=== PATIENT | male | born 1980 | race Caucasian/White ===

== ENCOUNTER → 2022-11-23 | Outpatient (CLI) | payer MEDICAID, SELFPAY ==
--- NOTE | 2022-11-23 07:00 | CT_ITS ---
CT LEFT LOWER EXTREMITY WITH 3-D IMAGING CLINICAL INDICATION: MULTIPLE MASSES, LEFT LEG TECHNIQUE: Axial CT images of the LEFT lower extremity was performed with IV contrast material. Coronal and sagittal reformats were provided. RADIATION DOSAGE (If Supplied By Facility): CTDIvol = ( 17.01 ) mGy, DLP = ( 2444.40 ) mGycm COMPARISON: FINDINGS: Bones: Osseous structures are normal without evidence of fracture or dislocation. No lytic or blastic osseous masses. Soft Tissues: There is evidence of the varicosities along the medial aspect of the left thigh. There is a 5.9 cm x 3.4 cm x 4.9 cm fat-containing nodular density in the anterior proximal portion of the left thigh with what appears to be calcified phleboliths suggestive of a lipoma. CT/Extremity Lower WITH Contrast IMPRESSION: 5.9 cm x 3.4 cm x 4.9 cm fat-containing nodule in the proximal anterior left thigh. This is suggestive of a lipoma. Electronically Signed: Homer Robins MD at 10:17 EDT ,
--- NOTE | 2022-11-23 07:01 | CT_ITS ---
STUDY: CT CHEST, ABDOMEN T PELVIS WITH CONTRAST REASON FOR EXAM: Male, 42 years old. MULTIPLE MASSES, MAYBE LIPOMAS RADIATION DOSAGE (If Supplied By Facility): CTDIvol = ( 17.01 ) mGy, DLP = ( 2444.40 ) mGycm TECHNIQUE: Transaxial imaging was performed following intravenous administration of IV 100mL Isovue-370. Multiplanar coronal and sagittal images were reformatted. Individualized dose optimization techniques were used for this CT. COMPARISON: No relevant priors. FINDINGS: CHEST Small bilateral axillary lymph nodes. Focal increased markings in the anterior lateral aspect of the lingular segment of the left upper lobe. This is suggestive of a scarring. Localized thickening of the pleura in the posterior lateral aspect of the right upper lobe. This measures 3.6 cm x 1.2 cm. No underlying bony destruction is seen. Normal heart and pericardium. There are multiple small lymph nodes within the mediastinum, which are normal in size and morphology most compatible with reactive lymph hyperplasia. Normal hilar regions. Normal unenhanced pulmonary arteries. Normal aorta arch and descending thoracic aorta. There is demineralization of the thoracic spine. Focal sclerosis along the posterior aspect of the T11 vertebrae. There is a small hiatal hernia. Fatty infiltration of the liver. ABDOMEN There is decreased attenuation of the liver consistent with steatosis. Normal gallbladder and extrahepatic biliary system. Normal spleen. Normal pancreas. Normal bilateral adrenal glands. Normal right kidney. Normal left kidney. There is a small hiatal hernia. Normal small intestine. Normal colon. The appendix is visualized and appears normal. Normal abdominal aorta. Normal inferior vena cava. There is borderline retroperitoneal lymphadenopathy with enlarged nodes no greater than 10mm in the short axis diameter. There is a small umbilical hernia containing fat. Asymmetrical thickening of the anterior subcutaneous tissues just lateral to the umbilicus on the right side. Within the, there is a 1.5 cm x 1.2 cm slightly hyperdense nodule. Normal osseous structures. PELVIS Normal urinary bladder. Normal visualized small intestine. Normal visualized colon. There is no pelvic fluid. There is no pelvic lymphadenopathy or mass lesion. Normal visualized pelvic arteries. Normal abdominal wall. Demineralization of the vertebrae. Focal hyperdensity in the posterior aspect of the T11 vertebrae as well as the T2 vertebrae. CT/CT Chest, Abd, Pel w/Contrast IMPRESSION: Asymmetrical thickening of the anterior subcutaneous tissue just lateral to the umbilicus on the right side. Small umbilical hernia containing fat. The mineralization of the lumbar and thoracic vertebrae as described. Focal pleural thickening along the posterolateral aspect of the right upper lobe as described. Electronically Signed: Homer Robins MD at 10:14 EDT ,
== END | disposition home or self-care (01) ==
LOC: CT 06:55
PROVIDERS: PCP Family Medicine; Referring Provider Surgery; Visit Provider Surgery
DX: R22.9 Localized swelling, mass and lump, unspecified (principal); R22.2 Localized swelling, mass and lump, trunk
CPT/HCPCS: 71260; 73701; 74177; Q9967

== ENCOUNTER 2022-12-05 17:07 | Emergency (ER) | payer MEDICAID, SELFPAY ==
[2022-12-05 17:10] VITALS: BP 138/95; PULSE 93; RESP 18; TEMP 36.3; O2SAT 98; BMI 27.5
[2022-12-05 18:12] LABS: Absolute Neutrophil Count 2.7 X10^3/uL (2.0-7.7); Basophil# 0.04 X10^3/uL; Basophil% 0.8 % (0-1); Eosinophil# 0.04 X10^3/uL; Eosinophils% 0.8 % (0-5); Hematocrit 48.1 % (40-54); Hemoglobin 15.8 g/dL (13.0-16.5); Lymphocyte % 28.7 % (19-41); Mean Corp Hgb Conc 32.8 g/dL (32-36); Mean Corpuscular Hgb 30.5 pg (27.0-32.0); Mean Corpuscular Volume 92.9 fL (80-94); Mean Platelet Vol. 10.7 fl (6.2-12.0); Monocyte# 0.68 X10^3/uL; NRBC Flagged by Analyzer 0 % (0-5); Neutrophil # 2.69 X10^3/uL (2.7-7.7); Neutrophil % 55.3 % (47-70); Platelet Count 232 K/mm3 (150-450); RBC Distribution Width CV 13.7 % (11.6-14.6); Red Blood Count 5.18 M/mm3 (4.6-6.2); White Blood Count 4.9 K/mm3 (4.4-11.0)
--- NOTE | 2022-12-05 18:13 | EX.ED.DYSGE1 ---
HPI History of Present Illness Chief Complaint: GI Bleed [facility] Medical History (Updated 12/05/22 @ 20:[address] Margarito Li, DO) Hydrocele Home Medications buprenorphine 8 mg-naloxone 2 mg sublingual tablet 0.5 tab sublingual TID 12/05/22 [History Last Taken Unknown] gabapentin 600 mg tablet 600 mg PO TID 12/05/22 [History Last Taken Unknown] ondansetron 4 mg disintegrating tablet 4 mg PO Q8H PRN nausea and vomiting 3 days #9 tabs 12/05/22 [Rx Last Taken Unknown] Allergy/AdvReac Type Severity Reaction Status Date / Time No Known Allergies Allergy Verified 12/05/22 17:40 Family History (Updated 11/11/22 @ 08:56 by Juliana Ortiz) Mother Skin cancer Social History Smoking Status: Current every day smoker tobacco type: cigarettes EXAM Physical Exam Const Vital Signs: 12/05/22 17:10 12/05/22 19:08 12/05/22 20:48 Temperature 97.4 F L Temperature Source Temporal Pulse Rate 93 78 Respiratory Rate 18 18 18 Blood Pressure 138/95 H 142/88 H Blood Pressure Mean 109 Pulse Ox 98 100 95 Oxygen Delivery Method Room Air Room Air MDM MDM MDM Narrative Medical decision making narrative: HISTORY OF PRESENT ILLNESS: 42-year-old male here with concern for GI bleeding. The patient states he is about 5 days of diarrhea notes 3-4 episodes a day. Denies any vomiting but notes nausea. Denies any fever. Denies any recent travel antibiotics or hospitalizations. Notes diffuse abdominal pain. Denies history of abdominal surgeries. REVIEW OF SYSTEMS: Pertinent positives: Abdominal pain, GI bleeding, diarrhea nausea Pertinent negatives: Vomiting PHYSICAL EXAM: Nursing triage notes reviewed, Vital signs reviewed Constitutional: please see mdm HENT: MMM Eyes: Pupils equal round and reactive to light, Extraocular muscles intact Neck: No stridor, no JVD, full neck ROM Lungs: Clear to auscultation, No wheezing or rales. No increased work of breathing, no conversational dyspnea, no accessory muscle use, no nasal flaring. No respiratory distress noted Heart: Regular rate and rhythm, No murmurs, No rubs and No gallops, 2+ distal pulses (radial, femoral, posterior tibial) in all extremities Abdomen: Soft, there is no tenderness, rigidity, rebound or guarding, no obvious peritoneal signs, no palpable pulsatile abdominal masses, no auscultated abdominal bruit : No CVAT Extremities: No edema Neuro: No focal neurological deficits, cranial nerves II through XII intact, 5/5 strength in all extremities. Intact sensation to light touch in all extremities, 2+ reflexes bilateral patella tendons. Normal gait. No ataxia. Skin: No rash or lesions noted MEDICAL DECISION MAKING: Chief Complaint: GI bleeding External records reviewed: Seen by general surgery Dr. Hoyos for a lipoma. Prior imaging studies reviewed. CT scan of the chest abdomen pelvis from November 2022 shows no acute intra-abdominal pathology or masses. Factors affecting care: No anticoagulation noted, lipoma ALL IMAGES (IF OBTAINED) HAVE BEEN PERSONALLY REVIEWED AND INTERPRETED BY MYSELF. MDM Narrative: Patient was hemodynamically stable, afebrile, nontoxic-appearing. Abdominal exam was benign I considered the following differential diagnosis: Pancreatitis, hepatobiliary pathology, invasive diarrhea, GI bleed, significant anemia Patient's abdominal exam was not indicative of an acute surgical process in the abdomen or pelvis. I have a low suspicion for acute surgical pathology given benign nature of the patient's abdominal exam. I obtained labs to further elucidate the etiology patient complaints. Labs showed no evidence of significant anemia, no evidence of systemic inflammation, there is mild elevation liver enzymes and very mild elevation in lipase. Did order a stool culture however patient could not provide a sample in the emergency department. These lab findings can be trended as an outpatient. No clear life-limiting etiology was ascertained. Patient was given Zofran for home-going and GI follow-up instructions. The patient and/or family, caregivers express understanding. The patient and/or family, caregivers agrees with the plan. Shared decision making: I will have a discussion with the patient and or visitors regarding risk/benefits of further testing or admission. They will be made aware of of the risk/benefits inherent in this decision they will be given the opportunity to voice understanding. Total critical care time today provided was at least 0 minutes. This excludes separately billable procedures. Critical care time (if documented) is secondary to the patient having high probability of clinically significant/life threatening deterioration in the patient's condition which required my urgent intervention. Lab Data Attestation: I reviewed the patient's lab results. Lab results narrative: CBC without leukocytosis, severe anemia, no thrombocytopenia. BMP without significant electrolyte abnormalities, no significant anion gap, no acute kidney injury LFTs with mild elevation in liver enzymes with no obvious signs of obstructive liver pathology Lipase mildly elevated this is not consistent with acute pancreatitis. Labs: Laboratory Results - last 24 hr 12/05/22 17:40 WBC 4.9 RBC 5.18 Hgb 15.8 Hct 48.1 MCV 92.9 MCH 30.5 MCHC 32.8 RDW Std Deviation 47.0 H RDW Coeff of Yonathan 13.7 Plt Count 232 MPV 10.7 Immature Gran % (Auto) 0.400 Neut % (Auto) 55.3 Lymph % (Auto) 28.7 [place] % (Auto) 14.0 H Eos % (Auto) 0.8 Baso % (Auto) 0.8 Absolute Neuts (auto) 2.7 Absolute Lymphs (auto) 1.40 Nucleated RBC % 0 Sodium 136 Potassium 4.3 Chloride 102 Carbon Dioxide 27.0 Anion Gap 7 BUN 7 Creatinine 0.80 Estim Creat Clear Calc 133.38 Est GFR (MDRD) Af Amer 137 Est GFR (MDRD) Non-Af 113 BUN/Creatinine Ratio 8.8 L Glucose 96 Calcium 8.9 Total Bilirubin 0.30 AST 75 H ALT 88 H Alkaline Phosphatase 98 Total Protein 7.4 Albumin 3.4 Globulin 4.0 Albumin/Globulin Ratio 0.8 L Lipase 215 H Discharge Plan Triage Chief Complaint: GI Bleed Other Complaint: Abd Pain ED Provider: Margarito Li Dx/Rx/DC Orders Clinical Impression: Diarrhea, Elevated liver enzymes, Elevated lipase, Hematochezia, Abdominal pain Instructions: Abdominal Pain Prescriptions: New ondansetron 4 mg tablet,disintegrating 4 mg PO Q8H PRN (Reason: nausea and vomiting) 3 Days Qty: 9 0RF No Action gabapentin 600 mg tablet 600 mg PO TID Patient Comments: TAKE 1 TABLET BY MOUTH THREE TIMES A DAY buprenorphine-naloxone 8-2 mg tablet, sublingual 0.5 tab SUBLINGUAL TID Patient Comments: TAKE 1 & 1/2 TABLETS BY MOUTH DAILY Primary Care Provider: Cristina Rojas Referrals: Cristina Rojas MD [Primary Care Provider] - Friend,DO Miguelito [Med Staff - Active Staff] - Activity Restrictions/Additional Instructions: Thank you for trusting us with your care today! Please take Tylenol (2 pills, 650 mg), ibuprofen (2 pills, 400 mg) every 6 hours as needed for pain and fever control. Please take Zofran as prescribed. Please return to the emergency department if your symptoms change or worsen. Specifically develop vomiting cannot tolerate medicine by mouth. If develop worsening diarrhea, weakness, if you lose consciousness. Develop chest pain or shortness of breath. Please follow with your primary care physician as well as a local customs appraiser for further outpatient evaluation and management. Disposition Disposition: Home, Self Care Discharge Date/Time: 12/05/22 20:49
[2022-12-05 18:28] LABS: ALB/GLOB Ratio 0.8 RATIO (0.9-2.4); AST(SGOT) 75 U/L (15-37); Alanine Aminotransfer ALT/SGPT 88 U/L (16-61); Albumin, Serum 3.4 g/dL (3.2-5.0); Alkaline Phosphatase 98 U/L (45-117); Anion Gap 7 (5-15); BUN 7 mg/dL (7-18); BUN/Creat Ratio 8.8 RATIO (10-20); Calcium,Total 8.9 mg/dL (8.5-10.1); Chloride 102 mmol/L (98-107); EST Glomerular Filtration Rate 113 mL/min (>60); Est Glom Filt Rate - Afr Amer 137 mL/min (>60); Estimated Creatinine Clearance 133.38 ml/min; Glucose 96 mg/dL (74-106); Potassium 4.3 mmol/L (3.5-5.1); Protein, Total 7.4 g/dL (6.4-8.2); Sodium Level 136 mmol/L (136-145)
[2022-12-05 19:08] VITALS: RESP 18; O2SAT 100
[2022-12-05 19:28] LABS: Lipase 215 U/L (13-75)
[2022-12-05] MEDS: Ondansetron 4 MG/2 ML Vial IV (20:27)
[2022-12-05 20:48] VITALS: BP 142/88; PULSE 78; RESP 18; O2SAT 95
== END 2022-12-05 20:49 | disposition home or self-care (01) ==
PROVIDERS: Emergency Provider Emergency Medicine; PCP Family Medicine; Visit Provider Emergency Medicine
DX: K92.1 Melena (principal); F17.210 Nicotine dependence, cigarettes, uncomplicated; R10.9 Unspecified abdominal pain; R19.7 Diarrhea, unspecified; R74.8 Abnormal levels of other serum enzymes; Z79.899 Other long term (current) drug therapy
CPT/HCPCS: 80053; 83690; 85025; 96374; 99283; A4216; J2405

== ENCOUNTER 2022-12-28 11:37 | Day surgery (SDC) | payer MEDICAID, SELFPAY ==
[2022-12-28] MEDS: Lactated Ringers 1,000 ML 15 ML IV ×2 (11:45→16:10)
[2022-12-28 11:57] VITALS: BP 154/107; PULSE 95; RESP 17; TEMP 36.7; O2SAT 98; BMI 27.8
--- NOTE | 2022-12-28 12:39 | PCM.HP.BLA ---
History and Physical Date of Admission: 12/28/22 Date of Service: 11/11/22 MR#: [id number] Acct: [id number] Name: JESSE SHRESTHA Rep #: [id number] : 1980 Provider: Dr. Gm Hoyos MD Age/Sex: 42/M Location: [facility] Status: Signed Intake Vital Signs 11/12/2307:56 Height 6 ft Weight: 204 lb BMI 27.6 BP 141/86 H Blood Pressure Location Rt brachial Position Sitting Respiration 16 Pulse 96 Pulse Source Monitor Pulse Oximetry (%) 97 Intake Visit Reasons: MULTIPLE LIPOMAS ON ARM Chief Complaint: MULTIPLE LIPOMAS Allergies No Known Allergies Allergy (Unverified 11/11/22 08:57) Medications gabapentin 300 mg capsule 300 mg PO DAILY 11/11/22 [History Confirmed 11/11/22] mirtazapine 30 mg tablet (Remeron) 30 mg PO DAILY 11/11/22 [History Confirmed 11/11/22] ondansetron HCl 8 mg tablet 8 mg PO Q12H 11/11/22 [History Confirmed 11/11/22] PFSH Medical History (Updated 11/11/22 @ 15:[address] Gm Hoyos MD) Hydrocele Family History (Updated 11/11/22 @ 08:56 by Juliana Ortiz) Mother Skin cancer HPI HPI HPI: Patient is a 42-year-old male who presents for multiple lipomas. Patient is referred from Dr. Rojas. He states that he has had lipomas for many years. He estimates that the lipomas on his abdomen have been present for at least the last 10 years. 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 He denies any prior imaging of these masses. He states it was just recently that he learned they could be removed and is simply thought he would have to live with them for the rest of his life. He is a lifetime smoker but states that he is making efforts to quit through vaping. He has no history of skin infections and reports healing without difficulty. He denies any prior anesthetic difficulties with a hernia repair performed in his early 20s. Patient has a family history of 2 bouts of melanoma in his mother, but otherwise denies any soft tissue tumors or GI diagnoses. He later adds that he has 2 sisters?both with lipomas, but neither of had these removed and both have fewer/smaller lesions. Pertinent surgical history includes: Inguinal hernia repair ROS General General: No weight change, appetite, fatigue, colon cancer, breast cancer or weakness HEENT HEENT: No difficulty swallowing, eye injury, eye surgery, swollen glands or hoarseness Endo Endocrine: No thyroid disease, diabetes mellitus, thyroid cancer, Hair loss, heat intolerance or cold intolerance Skin Skin: Yes changing moles; No rash Breast Breast: No left breast lump, right breast lump, nipple discharge, breast pain, abnormal mammogram, abnormal US or breast enlargement Musc Musculoskeletal: Yes back problems; No arthritis, rheumatoid arthritis, gout or joint pain Cardio Cardiovascular: No murmur, pacemaker, heart disease, atrial fibrillation, high blood pressure, heart attack, heart stent, palpitations, shortness of breat with exertion or chest pain Psych Psychiatric: Yes anxiety; No depression or hearing voices Resp Respiratory: No shortness of breath, No sleep apnea, No cough, No COPD, No asthma, No emphysema and No wheezing Gastro Gastrointestinal: No abdominal pain, No nausea or vomiting, No diarrhea, No constipation, No blood in stool, No acid reflux, No hemorrhoids, No ulcers, No gallbladder problem and No black,tarry stools Additional Details: PANCREATITIS Nayan Hematologic: No blood thinners, No blood disorders, No bleeding, No anemia and No blood clots Neuro Neurologic: No system reviewed and no additional complaints, except as documented, No as per HPI, No abnormal gait, No abnormal hearing, No abnormal movements, No abnormal speech, No behavioral changes, No burning sensations, No confusion, No convulsions, No disequilibrium, No dizziness, No localized weakness, No frequent falls, No headache(s), No lack of coordination, No loss of vision, No memory loss, No numbness, No other visual disturbances, No radicular pain, No restless legs, No sensory deficit, No syncope, No tingling, No tremor(s), No weakness and No other Exam Const General: cooperative, comfortable and no acute distress Other: Patient coughs frequently with a dry cough and explains this away as his smoking habit Resp Effort & Inspection: normal respiratory effort Skin Other: Patient with large lipomatous mass to the ventral aspect of his left forearm. There are numerous lipomatous on this surface and dorsally as well. He has 3 lesions to the right ventral forearm. He then displays 2 larger masses over his left anterior thigh. Lastly I count 13 separate lesions of his anterior abdominal wall and 11 separate lesions over his back. Some of these are as large as a grapefruit. They are somewhat mobile and tender on palpation. Assessment and Plan Assessment and Plan (1) Mass of subcutaneous tissue of multiple sites: Status: Chronic Comment: Patient with at least 35 subcutaneous masses across his anterior abdominal wall, back, anterior right thigh, and left upper extremity. While these generally feels like lipomas on exam, I would like to obtain some imaging to assess for whether or not they both appear as lipomas as well as assess there depth of extension?particularly as it relates to the abdominal wall, back musculature, and the neurovascular bundle of the left thigh. Therefore, I am requesting CT imaging of the chest, abdomen, pelvis and thigh with IV contrast. We will plan to follow-up with patient once this is resulted and begin a plan for intervention. Patient has been informed that this would likely require a staged process to address all of these lesions. Plan: ? CT imaging of the chest, abdomen, pelvis, and thigh with IV contrast I have examined the patient and the H&P has been reviewed. There are no clinical changes since date of exam. He reports that he is nervous for today's operation and becomes nervous simply with going to the doctor's office. Expectations for today's procedure were reviewed and operative sites were marked to include presternal, abdominal, and left forearm lipomas. Patient acknowledges this is just the start of addressing his problems which may require further anesthetics. He has no further questions. Therefore we will proceed to the operating room for excision of the subcutaneous masses as discussed above.
--- NOTE | 2022-12-28 13:00 | LIP_PTH ---
PATIENT: JESSE SHRESTHA LOC: [facility] [place] U#:[id number] AGE/SX: 42/M ROOM: RE12/28/[address]: Dr. Gm Hoyos MD : 1980 BED: DIS: 12/28/2022 SPEC #: [id number] RECD: 12/29/22 07:55 STATUS: RONNIE ERIC #: [id number] CEDRIC: 12/28/22 13:[address]: Gm Hoyos DEPT: SURGICAL PATHOLOGY RECD BY: Gina Peres ENTERED: 12/29/22 09:11 SP TYPE: LIPOMA OTHR DR: Cristina Rojas MD Tissues: A - Soft tissues, NOS B - Soft tissues, NOS C - Soft tissues, NOS D - Soft tissues, NOS Procedures: Surgery Specimen Level III HEADER OPERATION: Excision lipoma on left forearm, upper abdominal and lower PRE-OP DIAGNOSIS: Mass of subcutaneous tissue of multiple sites TISSUE SUBMITTED: A - Sternal, B - Superior left rectus, C - Right inferior rectus, D - Left forearm MICROSCOPIC DIAGNOSIS A. Soft tissue mass of sternal region, excision: Lipoma with fat necrosis. B. Soft tissue lesion of superior left rectus, biopsy: Lipoma with fat necrosis, fibrosis and dystrophic microcalcifications. C. Soft tissue mass of right inferior rectus, excision: Lipoma with fat necrosis, fibrosis and dystrophic microcalcifications. D. Soft tissue mass of left forearm, excision: Lipoma with fat necrosis, fibrosis and dystrophic microcalcifications and changes of angiolipoma. AM:alejandro 12/30/2022 MICROSCOPIC DESCRIPTION Slides are reviewed. GROSS DESCRIPTION A - Received in fixative is one container labeled with the patient's name and designated sternal. The specimen consists of three lobulated pieces of lubin-yellow adipose tissue measuring 8.0 x 7.0 x 3.0 cm and 3.0 x 3.0 x 1.5 cm and 3.5 x 3.0 x 1.5 cm. Sections reveal yellow adipose cut surfaces without area of hemorrhage, necrosis or cystic degeneration. Title Search Manager sections are submitted in four cassettes. B - Received in fixative is one container labeled with the patient's name and designated superior left rectus. The specimen consists of seven lobulated pieces of yellow adipose tissue measuring in aggregate 12.0 x 9.0 x 3.5 cm and measuring 2.5 to 7.0 cm in greatest dimension. Sections reveal yellow adipose cut surfaces without area of hemorrhage, necrosis or cystic degeneration. Title Search Manager sections are submitted in four cassettes. C - Received in fixative is one container labeled with the patient's name and designated right inferior rectus. The specimen consists of seven variable sized pieces of lobulated yellow adipose tissue measuring in aggregate 15.0 x 10.0 x 4.0 cm and measuring 3.5 to 11.0 cm in greatest dimension. Sections reveal yellow adipose cut surfaces without area of hemorrhage, necrosis or cystic degeneration. Title Search Manager sections are submitted in four cassettes. D - Received in fixative is one container labeled with the patient's name and designated left forearm. The specimen consists of a lobulated piece of yellow adipose tissue measuring 5.5 x 4.5 x 2.0 cm. Sections reveal yellow adipose cut surfaces mixed with lubin-white fibrous areas. Title Search Manager sections are submitted in four cassettes. / SJ:rg 12/29/2022 TC:1 CPT: 23704 x4
[2022-12-28] MEDS: Cefazolin 2 GM in 0.9% Normal Saline (100mL Bag) 100 ML IV (13:26)
[2022-12-28] MEDS: Bupivacaine Mpf 0.5% 30 ML VIAL ×2 (13:55→15:39)
--- NOTE | 2022-12-28 16:23 | PCM.OPRPT ---
Report of Operation Date of Procedure: 12/28/22 Pre-Operative Diagnosis: Multiple subcutaneous masses consistent with lipomas by imaging Surgery/Procedure Performed:: Excision of multiple subcutaneous masses from the left forearm, lower chest, left upper abdominal wall, and right lower abdominal wall Description of Surgical Findings:: ? Left forearm 6.5 cm lon ? Right lower rectus 6 cm (by 1.5 cm): 7 ? Left upper rectus 6.5 cm (by 1 cm): 7 ? Sternum 5.5 cm (by 1 cm): 3 Surgeon: Gm Hoyos personal lines account manager: Jorge Zhou Type of Anesthesia: General/Supplemental Anesthesiologist: Corby Napoles Specimen's removed: Left forearm, sternal, left superior rectus, right inferior rectus lipomas (18 in total) Estimated Blood Loss (mL): 20 Description of Procedure: After appropriate identification the preoperative holding area patient was brought to the operating room where he was positioned in a supine position with his arm out on a armboard. There he was administered a general anesthetic. Preoperative antibiotics were infused. His chest, abdomen, and left upper extremity were prepped and draped in usual sterile fashion. A formal timeout followed to confirm both patient and procedure. I then injected local anesthetic and made a transverse incision 6 cm long along the mid aspect of the patient's lipomatous mass just overlying the lower part of his sternum. This was carried deeply through the tissue with use of electrocautery to maintain hemostasis as we proceeded. I then visualized the lipomatous subcutaneous mass and used a combination of sharp and blunt dissection to free this mass from the surrounding soft tissue/capsule. There is lipomatous mass was then completely extirpated with electrocautery and passed off the operative field for pathology. The resulting cavity was inspected for hemostasis as well as any additional masses. 2 additional masses were found and were removed in similar fashion. This process was then repeated for the patient's left upper abdominal wall, right lower abdominal wall and left forearm with 6.5 cm, 6.0 cm, and 6.5 cm incisions (after instillation of local anesthetic), respectively. All masses palpable through these incisions were removed with a combination of selective electrocautery and blunt dissection and a total of 18 distinct lipomatous masses were removed. Each wound was packed with a moistened lap sponge. Each cavity was then irrigated and closed in layers to plicate the space deeply and approximate the deep dermal tissues using 2-0 and 3-0 Vicryl, respectively. A final layer was performed in a subcuticular fashion using 4-0 Monocryl. Steri-Strips and dressing were applied along with Telfa and Tegaderm as dressings and the patient was awakened and transferred to the PACU bed for his ongoing care. Grafts/Implants Used: None Complications None Procedures Integumentary 114x: 12475 Exc tr-ext b9+dolly >4.0 cm
--- NOTE | 2022-12-28 16:27 | DCINST_ITS ---
Discharge Instructions Diet Discharge Diet: No restrictions Activity Discharge Activity: May Drive (No driving while using narcotic pain medication) May shower in (days): 2 Ice area for (Minutes): 15 Lifting Restrictions: Limit lifting with left upper extremity to no more than 5 pounds Dressing / Incision Call your doctor if your incision/area has: Continuous Slow Oozing, Sudden Increased Bleeding, Increased Pain/ Swelling, Increased Redness, Foul Smelling Discharge and Swelling at the incision site Call your doctor if you observe: Fever of 101 or Higher Suture Line Care: Avoid Pulling/Pushing Remove Dressing in: 2 days Cleanse incision/area with: Soap & Water Additional Dressing/Incision Instructions:: Please leave Steri-Strips intact until they fall off spontaneously or are taken off at your follow-up visit Follow Up Care Please Follow Up With: Gm Hoyos MD When: 7 days postop Test Results: Test results from this visit will be discussed in further detail at your follow- up appointment, if applicable. Discharge Plan Admission Primary Reason for Your Visit: Lipoma excision Attending Provider: Gm Hoyos Primary Care Provider: Cristina Rojas Discharge Orders/Prescriptions Prescriptions: No Action acetaminophen [Pain Relief (acetaminophen)] 325 mg tablet 650 mg PO Q4H PRN (Reason: pain) gabapentin 600 mg tablet 600 mg PO TID Patient Comments: TAKE 1 TABLET BY MOUTH THREE TIMES A DAY buprenorphine-naloxone 8-2 mg tablet, sublingual 0.5 tab SUBLINGUAL TID Patient Comments: TAKE 1 & 1/2 TABLETS BY MOUTH DAILY Referrals / Follow Up: Cristina Rojas MD [Primary Care Provider] - Disposition Disposition (needs filled in before D/C Order can be placed): Home, Self Care
[2022-12-28 16:39] VITALS: BP 154/107; BP 178/111; PULSE 84; RESP 18; TEMP 36.9; O2SAT 96
[2022-12-28 16:45] VITALS: BP 154/107; PULSE 91; RESP 18; O2SAT 98
[2022-12-28] MEDS: Ketorolac 30 MG/ML Syringe IV (16:52)
[2022-12-28 17:00] VITALS: BP 151/101; BP 154/107; PULSE 87; RESP 18; O2SAT 95
[2022-12-28 17:10] VITALS: BP 145/103; BP 154/107; PULSE 86; RESP 18; TEMP 37; O2SAT 98
[2022-12-28] MEDS: Acetaminophen 325 MG Tablet 650 MG PO (17:36)
[2022-12-28 17:56] VITALS: BP 142/94; BP 154/107; PULSE 97; RESP 16; TEMP 36.6; O2SAT 100
== END 2022-12-28 18:05 | disposition home or self-care (01) ==
LOC: SDC 11:38 → AC 11:42
PROVIDERS: PCP Family Medicine; Referring Provider Surgery; Visit Provider Surgery
PROC: (CPT 21552; principal; 2022-12-28 12:45)
DX: D17.1 Benign lipomatous neoplasm of skin and subcutaneous tissue of trunk (principal); D17.22 Benign lipomatous neoplasm of skin and subcutaneous tissue of left arm; F17.290 Nicotine dependence, other tobacco product, uncomplicated; Z80.8 Family history of malignant neoplasm of other organs or systems
CPT/HCPCS: 21552; 25071; 22903; 00400; 88304; J7120; J2405

== ENCOUNTER 2023-02-03 14:27 | Observation (INO) | payer MEDICAID, SELFPAY ==
[2023-02-03 14:28] VITALS: BP 122/74; PULSE 108; RESP 18; TEMP 35.6; O2SAT 96; BMI 27.6
--- NOTE | 2023-02-03 16:22 | EDS_ITS ---
HPI History of Present Illness Chief Complaint: ETOH Intox Narrative Narrative: 42-year-old male presenting for detox. He drinks 8-9 tall boys a day. He states that he drinks 4 Turin's and hard lemonade which are higher in alcohol content. Last drink was prior to coming to the ED. He states that 2 days ago he tried to stop drinking and got the shakes. He does report that he does withdrawal. Patient states that he needs detox from alcohol. Patient is in recovery from opioid use and is on Suboxone. [facility] Medical History Alcohol use Back pain Cancer History of steroid therapy Hydrocele Injury of back Injury of head and neck Smoker Wears contact lenses Wears glasses Home Medications buprenorphine 8 mg-naloxone 2 mg sublingual tablet 0.5 tab sublingual TID 12/05/22 [History Last Taken 12/28/22] gabapentin 600 mg tablet 600 mg PO TID 12/05/22 [History Last Taken 12/28/22] tramadol 50 mg tablet 50 mg PO Q6H PRN pain #20 tabs 12/29/22 [Rx Last Taken Unknown] Allergy/AdvReac Type Severity Reaction Status Date / Time No Known Allergies Allergy Verified 02/03/23 14:28 Family History Mother Skin cancer Surgical History Hx of hernia repair S/P excision of lipoma Social History Smoking Status: Current every day smoker tobacco type: cigarettes ROS ROS ED Constitutional Constitutional ED: Denies chills, fever(s) or sweats Eyes Eyes: Denies blurry vision or change in vision ENT ENT ED: Denies ear pain or sore throat Cardiovascular Cardiovascular: Denies chest pain, palpitations or racing heartbeat Respiratory/Chest Respiratory/Chest: Denies cough, dyspnea or sputum Gastrointestinal Gastrointestinal: Denies abdominal pain, constipation, diarrhea, nausea or vomiting Genitourinary Genitourinary ED: Denies dysuria, hematuria or urinary frequency Musculoskeletal Musculoskeletal: Denies arthralgias, myalgias or neck pain Integumentary Denies abscess, Abrasions or rash Neurologic Neurologic: Denies headache(s), paresthesias or weakness Psychiatric Psychiatric: Reports depression; Denies anxiety, suicidal ideation or suicidal thoughts Endocrine Endocrinology: Denies polydipsia or polyuria EXAM Physical Exam Const Vital Signs: 02/03/23 14:28 Temperature 96.1 F L Temperature Source Temporal Pulse Rate 108 H Respiratory Rate 18 Blood Pressure 122/74 H Blood Pressure Mean 90 Pulse Ox 96 Oxygen Delivery Method Room Air General Appearance ED: Negative for pallor HEENT Reports normocephalic, head/scalp atraumatic and moist mucous membranes Eyes PERRL and EOMs intact bilaterally Neck no lymphadenopathy and supple Chest Wall inspection of chest normal and palpation of chest normal Resp normal respiratory effort and clear to auscultation bilaterally Auscultation: Negative for rales, rhonchi or wheezes Cardio regular rate and regular rhythm GI non-distended Palpation: soft Narrative: Deferred Extremity normal to inspection Neuro oriented x3 and CN's II-XII intact bilaterally Sensorium / Orientation: alert Motor Exam: strength 5/5 throughout Psych mental status grossly normal Attitude: No agitated Skin no rashes or lesions noted and no wounds General Skin Exam: Negative for jaundice or pallor MDM MDM MDM Narrative Medical decision making narrative: Patient presenting for alcohol detox. Screening lab work was ordered. Patient states he last drink a couple of hours ago. He is not withdrawal. He is given a nicotine patch. Discussed with hospitalist for admission. Labs will be followed on the floor. Impression: 1. Presentation for alcohol detox Lab Data Labs: Laboratory Results - last 24 hr 02/03/23 15:40 Ur Drug Screen Comment Discharge Plan Triage Chief Complaint: ETOH Intox ED Provider: Alvin Fuller Dx/Rx/DC Orders Prescriptions: No Action tramadol 50 mg tablet 50 mg PO Q6H PRN (Reason: pain) Qty: 20 0RF gabapentin 600 mg tablet 600 mg PO TID Patient Comments: TAKE 1 TABLET BY MOUTH THREE TIMES A DAY buprenorphine-naloxone 8-2 mg tablet, sublingual 0.5 tab SUBLINGUAL TID Patient Comments: TAKE 1 & 1/2 TABLETS BY MOUTH DAILY Primary Care Provider: Cristina Rojas Referrals: Cristina Rojas MD [Primary Care Provider] -
--- NOTE | 2023-02-03 16:35 | NURSING ---
MED SURG WHITE ETOH DETOX
--- NOTE | 2023-02-03 16:40 | HP.PCM.HOS_ITS ---
HPI - General General Date of Admission: 02/03/23 Date of Service: 02/03/23 Chief Complaint: EtOH withdrawal HPI Narrative The patient is a 42 y/o M w/ PMHx: Anxiety and Depression who recently took himself off his sertraline, Chronic pain, Polysubstance abuse history on buprenorphine, Severe Diffuse lipoma history s/p recent excisions to abdominal lipomas, Tobacco use, EtOH abuse (8-14 Tall Boys) who presents to the [facility] ED on 02/03/23 with history of increased anxiety and depression without SI taking himself off of his medications unfortunately secondary to numb sensation although he recently restarted them but started drinking more heavily over the last ~ 6 weeks culminating with the anniversary of his father over the weekend Monday prompting his eventual decision for EtOH withdrawal treatment. He notes last intake early this AM with now onset mild nausea, mild tremors, mild agitation. Work-up in the ED included T96.1, heart rate 108, BP 122/74, respiratory rate 18, 96% on room air, CBC with WC 8.3, and 116.4, platelet 235 without marked shift, CMP with chloride 97, BUN/creatinine 6/0.95, glucose 113, AST/ALT 102/107, alk phos 129 otherwise not marked appearing, UDS unremarkable, alcohol pending upon request evaluation of patient. In the ED patient administered Nicotine patch. [facility] Medical History (Updated 02/03/23 @ 17:[address] 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 Sophia Leach MD) Mother Skin cancer Father Glioblastoma Familial multiple lipomatosis Surgical History Hx of hernia repair S/P excision of lipoma Social History (Updated 02/03/23 @ 17:[address] Sophia Leach MD) household members: none Smoking Status: Current every day smoker tobacco type: cigarettes Smoking packs per day: 1 Smoking cigarettes per day: 20.0 alcohol intake: current alcohol intake frequency: 3 or more drinks per day details: 8-14 Tall boys daily. 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 Clean status on buprenorphine. ROS ROS Narrative Admission Review of Systems: CONSTITUTIONAL: No weight loss, fever, chills, + weakness or fatigue. HEENT: Eyes: No visual loss, blurred vision, double vision or yellow sclerae. Ears, Nose, Throat: No hearing loss, sneezing, congestion, runny nose or sore throat. SKIN: + Significant lipoma history with recent resection of lipomas of the abdomen with incisions intact CARDIOVASCULAR: No chest pain, chest pressure or chest discomfort, palpitations, edema, orthopnea, syncopal events. RESPIRATORY: No shortness of breath, cough or sputum, wheezing, hemoptysis. GASTROINTESTINAL: + anorexia, nausea. No vomiting or diarrhea, abdominal pain, melena, BRBPR. GENITOURINARY: No dysuria, frequency, urgency or retention. NEUROLOGICAL: + Restlessness, mild agitation, mild tremors, tactile disturbances. No headache, dizziness, syncope, paralysis, ataxia, numbness or tingling in the extremities, focal weakness, change in bowel or bladder control, seizure. MUSCULOSKELETAL: + muscle, back pain, joint pain or stiffness. HEMATOLOGIC: No anemia, bleeding or bruising. LYMPHATICS: No enlarged nodes. No history of splenectomy. PSYCHIATRIC: + history of depression or anxiety. ENDOCRINOLOGIC: No reports of sweating, cold or heat intolerance. No polyuria or polydipsia. ALLERGIES: No history of asthma, hives, eczema or rhinitis. Vital Signs Vital Signs Vital Signs: 02/03/23 14:28 Temperature 96.1 F L Temperature Source Temporal Pulse Rate 108 H Respiratory Rate 18 Blood Pressure 122/74 H Blood Pressure Mean 90 Pulse Ox 96 Oxygen Delivery Method Room Air Weight Weight: 204 lb Body Mass Index (BMI) 27.6 Physical Exam Narrative Physical Examination: General: Awake, alert, oriented x 3 and cooperative, seated upright in the ED bed, restless, mildly tremulous. Skin: Normal color, normal turgor, no icterus, no cyanosis except for various abrasions in addition to recent abdominal superficial incision status post excision of lipomas well-appearing, intact. HEENT: AT/NC, EOMI, PERRLA, dry MM, no carotid bruits or JVD noted. Lungs: CTA bilaterally, moderate effort, mild decrease BL bases, no rales, ronchi or wheezing. Heart: Tachycardic with regular rhythm; no gallop, rub audible. Abdomen: Soft, NTTP except for expected around his incision status post recent lipoma resections with incisions intact and well-appearing, no marked distention, hyperactive BS, appreciated HM although difficult evaluation given significant lipomatosis. Extremities: No cyanosis, clubbing, or edema, see skin with lipomas on the extremities as well, recent excision with well-appearing scar on the left upper extremity also. Neurological: Patient awake, alert, oriented as noted, cognitive function intact; pupils equally reactive to light and accommodation, cranial nerves II- XII grossly normal, moving all 4 extremities, no focal deficits, strength mildly to moderately global decreased, restless, mildly tremulous, tactile disturbances reported. Psychiatric: Affect appears restless, anxious, does have underlying depression and anxiety. Results Lab / Micro Data 02/03/23 16:40 02/03/23 16:40 Labs: Laboratory Results - last 24 hr 02/03/23 15:40: Ur Drug Screen Comment Assessment & Plan Assessment/Plan (1) Alcohol withdrawal: PLAN: Plan The patient is a 42 y/o M w/ PMHx: Anxiety and Depression who recently took himself off his sertraline, Chronic pain, Polysubstance abuse history on buprenorphine, Severe Diffuse lipoma history s/p recent excisions to abdominal lipomas, Tobacco use, EtOH abuse (8-14 Tall Boys) who presents to the [facility] ED on 02/03/23 with history of recent increased alcohol abuse with onset of alcohol withdrawal with request for assistance for sobriety. #1. Acute EtOH Withdrawal with concurrent Acute Alcoholic hepatitis/transaminitis: Will admit to MS, routine labs obtained in the ED upon presentation w/ notable LFT elevations, likely chronic with AST/ALT 102/107, alk phos 129. Given interest in sobriety, will initiate and continue on protocol with taper course of Phenobarbital, as needed gabapentin, Catapres, Bentyl, Vistaril, IV fluids, IV antiemetics, Tylenol as needed for pain. Will consult Case management for assistance for transition to next level of rehabilitation c are. Mag, phos pending. Maintain on CIWA protocol concurrently. #2. Former Opiate Abuse/Polysubstance abuse: Patient does admit to IV drug usage prior but denies needle sharping. Discussed and to be cautious patient amenable to hepatitis, HIV and RPR assessment. Will continue chronic buprenorphine regimen. #3. Significant lipoma history, familial component: Patient with significant lipomas over his extremities and abdomen, recent excision from abdomen with incisions well-appearing, encourage continued outpatient follow-up with the surgeon as previously arranged. #4. Chronic back pain: We will continue patient home chronic gabapentin regimen. #5. Tobacco Abuse: Encouraged cessation, inpatient consultation per RT, NR if desired. #6. Anxiety and depression: We will continue patient home sertraline regimen, case management/substance abuse counseling team consulted, would benefit from ongoing therapy and potential medication adjustments given complaints. Educated patient about the risk of taking himself off of his medications without discussing it with a healthcare provider. #7. DVT prophylaxis: Low risk for type of admission. Charges/Coding Visit Charges Inpatient E&M: 08561 Init Hosp L3
[2023-02-03 16:58] LABS: Absolute Lymphocyte Count 2.37 X10^3/uL (0.83-4.51); Absolute Neutrophil Count 5.2 X10^3/uL (2.0-7.7); Basophil# 0.06 X10^3/uL; Basophil% 0.7 % (0-1); Eosinophil# 0.05 X10^3/uL; Eosinophils% 0.6 % (0-5); Hemoglobin 16.4 g/dL (13.0-16.5); Lymphocyte # 2.37 X10^3/ul (0.83-4.51); Lymphocyte % 28.6 % (19-41); Mean Corp Hgb Conc 33.5 g/dL (32-36); Mean Corpuscular Hgb 31.4 pg (27.0-32.0); Mean Corpuscular Volume 93.9 fL (80-94); Mean Platelet Vol. 10.5 fl (6.2-12.0); Monocyte# 0.62 X10^3/uL; Monocyte% 7.5 % (0-10); NRBC Flagged by Analyzer 0 % (0-5); Neutrophil # 5.17 X10^3/uL (2.7-7.7); Neutrophil % 62.2 % (47-70); Platelet Count 235 K/mm3 (150-450); RBC Distribution Width CV 14.6 % (11.6-14.6); RBC Distribution Width SD 50.3 fl (35.1-43.9); Red Blood Count 5.22 M/mm3 (4.6-6.2); White Blood Count 8.3 K/mm3 (4.4-11.0)
[2023-02-03 17:00] VITALS: PULSE 74; RESP 16; O2SAT 99
[2023-02-03 17:05] LABS: ALB/GLOB Ratio 0.8 RATIO (0.9-2.4); AST(SGOT) 102 U/L (15-37); Alanine Aminotransfer ALT/SGPT 107 U/L (16-61); Albumin, Serum 3.3 g/dL (3.2-5.0); Alkaline Phosphatase 129 U/L (45-117); Anion Gap 9 (5-15); BUN 6 mg/dL (7-18); BUN/Creat Ratio 6.3 RATIO (10-20); Calcium,Total 8.7 mg/dL (8.5-10.1); Chloride 97 mmol/L (98-107); Creatinine, Serum 0.95 mg/dL (0.70-1.30); EST Glomerular Filtration Rate 93 mL/min (>60); Est Glom Filt Rate - Afr Amer 112 mL/min (>60); Estimated Creatinine Clearance 112.32 ml/min; Globulin 3.9 g/dL (2.2-4.2); Glucose 113 mg/dL (74-106); Magnesium 1.7 mg/dL (1.6-2.6); Potassium 3.5 mmol/L (3.5-5.1); Protein, Total 7.2 g/dL (6.4-8.2); Sodium Level 138 mmol/L (136-145)
[2023-02-03 17:10] LABS: Amphetamine Urine VISTA NEGATIVE (<1000 ng/mL); Barbiturate Urine VISTA NEGATIVE (< 200 ng/mL); Benzodiazepine Urine VISTA NEGATIVE (< 200 ng/mL); Cocaine Urine VISTA NEGATIVE (< 300 ng/mL); Ecstacy Urine VISTA NEGATIVE (< 500 ng/mL); Methadone Urine VISTA NEGATIVE (< 300 ng/mL); PCP Urine VISTA NEGATIVE (< 25 ng/mL); THC Urine VISTA NEGATIVE (< 50 ng/mL); Vista UDS pH Range 6
[2023-02-03 17:11] LABS: Phosphorus 2.9 mg/dL (2.5-4.9)
[2023-02-03 18:01] LABS: HIV - WCH Non-Reactive (Nonreactive); Syphilis Antibodies Non-reactive
[2023-02-03 18:05] VITALS: PULSE 72; RESP 16; O2SAT 98
[2023-02-03 18:49] VITALS: BMI 27.6
[2023-02-03 18:55] VITALS: BP 152/88; PULSE 103; RESP 16; TEMP 36.6; O2SAT 98
[2023-02-03] MEDS: hydrOXYzine PAM 25 MG Capsule 50 MG PO ×2 (19:50→23:48)
[2023-02-03] MEDS: Phenobarbital 32.4 MG Tablet 64.8 MG PO ×2 (19:51→23:48)
[2023-02-03] MEDS: traZODone 100 MG Tablet PO (19:51)
[2023-02-03] MEDS: Dicyclomine 10 MG Capsule 20 MG PO (19:51)
[2023-02-03] MEDS: Acetaminophen 325 MG Tablet 650 MG PO (19:55)
[2023-02-03 20:48] LABS: Hepatitis B Surface Antibody Reactive; Hepatitis B Surface Antigen Non-Reactive (Nonreactive); Hepatitis C Antibody Preliminary Reactive (Nonreactive)
[2023-02-03] MEDS: Gabapentin 600 MG Tablet PO (21:14)
[2023-02-03 23:30] VITALS: O2SAT 98
[2023-02-03 23:50] VITALS: BP 133/93; PULSE 103; RESP 16; TEMP 37.2; O2SAT 98
[2023-02-04] VITALS (8 sets, daily range): BP systolic 138–167; BP diastolic 88–107; PULSE 78–104; RESP 16–18; TEMP 36.8–37.1; O2SAT 95–100
[2023-02-04] MEDS: hydrOXYzine PAM 25 MG Capsule 50 MG PO ×4 (04:06→20:13)
[2023-02-04] MEDS: Acetaminophen 325 MG Tablet 650 MG PO ×2 (04:07→20:12)
[2023-02-04] MEDS: Phenobarbital 32.4 MG Tablet 64.8 MG PO ×5 (04:07→20:09)
[2023-02-04] MEDS: hydrALAZINE 20 MG/ML Vial 10 MG IV (04:14)
[2023-02-04] MEDS: 0.9% Saline Lock 10 ML Syringe IV (04:14)
[2023-02-04] MEDS: Gabapentin 600 MG Tablet PO ×3 (05:41→21:03)
[2023-02-04] MEDS: Thiamine Hydrochloride 100 MG Tablet PO (08:30)
[2023-02-04] MEDS: Multivitamins,Ther W-Minerals Tablet 1 TABLET PO (08:31)
[2023-02-04] MEDS: Folic Acid 1 MG Tablet PO (08:31)
[2023-02-04] MEDS: Ondansetron 8 MG Tablet PO ×2 (08:40→20:12)
--- NOTE | 2023-02-04 10:44 | PN.HOSP_ITS ---
Reason for Visit Reason for Visit: Diagnoses Alcohol use, unspecified with withdrawal, unspecified (02/03/23) Subjective Subjective Patient was seen and examined today, he does not complain of any nervousness or tremor. Objective Data Objective Data Vital Signs: Vital Signs Temp Pulse Resp BP Pulse Ox O2 Del Method 98.2 F 87 18 138/88 H 97 Room Air 02/04/23 10:00 02/04/23 10:00 02/04/23 10:00 02/04/23 10:00 02/04/23 10:00 02/04/23 10:00 Oxygen Delivery Method Room Air Weight: 92.533 kg Body Mass Index (BMI) 27.6 Lab / Micro Data 02/03/23 16:40 02/03/23 16:40 Labs: Laboratory Results - last 24 hr 02/03/23 15:40: Urine Opiates Screen NEGATIVE, Urine Methadone Screen NEGATIVE, Ur Barbiturates Screen NEGATIVE, Ur Phencyclidine Scrn NEGATIVE, Ur Amphetamines Screen NEGATIVE, MDMA (Ecstasy) Screen NEGATIVE, U Benzodiazepines Scrn NEGATIVE, Urine Cocaine Screen NEGATIVE, U Cannabinoids Screen NEGATIVE, Ur Drug Screen Comment 02/03/23 16:40: WBC 8.3, RBC 5.22, Hgb 16.4, Hct 49.0, MCV 93.9, MCH 31.4, MCHC 33.5, RDW Std Deviation 50.3 H, RDW Coeff of Yonathan 14.6, Plt Count 235, MPV 10.5, Immature Gran % (Auto) 0.400, Neut % (Auto) 62.2, Lymph % (Auto) 28.6, [place] % (Auto) 7.5, Eos % (Auto) 0.6, Baso % (Auto) 0.7, Absolute Neuts (auto) 5.2, Absolute Lymphs (auto) 2.37, Nucleated RBC % 0, Sodium 138, Potassium 3.5, Chloride 97 L, Carbon Dioxide 32.0, Anion Gap 9, BUN 6 L, Creatinine 0.95, Estim Creat Clear Calc 112.32, Est GFR (MDRD) Af Amer 112, Est GFR (MDRD) Non-Af 93, BUN/Creatinine Ratio 6.3 L, Glucose 113 H, Calcium 8.7, Phosphorus 2.9, Magnesium 1.7, Total Bilirubin 0.60, AST 102 H, ALT 107 H, Alkaline Phosphatase 129 H, Total Protein 7.2, Albumin 3.3, Globulin 3.9, Albumin/Globulin Ratio 0.8 L, Ethyl Alcohol 300.0, Syphilis Total Ab Non-reactive, Hep Bs Antigen Non- Reactive, Hep Bs Antibody Reactive, Hepatitis C Antibody Preliminary Reactive, HIV 1&2 Antibody Non-Reactive Physical Exam Const alert, oriented x3, no apparent distress, average body habitus and healthy appearing General Appearance: cooperative, well kempt and well developed Orientation / Consciousness: awake, oriented to person, oriented to place and oriented to time HEENT normocephalic and moist oral mucous membranes Eyes PERRL, EOMs intact bilaterally and conjunctivae normal Neck supple, no JVD, thyroid normal and no carotid bruits General: trachea midline Resp normal respiratory effort, no retractions, no use of accessory muscles and clear to auscultation bilaterally Auscultation: Negative for rales, rhonchi or wheezes Cardio regular rate, regular rhythm, S1 normal heart sound, S2 normal heart sound, no murmurs, no rub and no gallops GI normal to inspection, nondistended, normoactive bowel sounds, soft to palpation, non-tender and non-distended Extremity no clubbing, cyanosis or edema Skin no rashes or lesions noted General Skin Exam: no breakdown Neuro oriented x3, CN's II-XII intact bilaterally, moves all extremities, no focal motor deficits and no sensory deficits noted Sensorium / Orientation: awake, alert, oriented to person, oriented to place and oriented to time Speech: speech normal Psych affect normal Assessment & Plan Assessment/Plan (1) Alcohol withdrawal: PLAN: Plan 1. Acute alcohol withdrawal-patient will remain on his present medications including his phenobarb taper, he will be seen by addiction protective services social worker, he is stated that he would like to do an outpatient detox program not an inpatient one. #2 chronic alcoholism-complicates care, medical course, recovery, and prognosis #3 past history of polysubstance abuse-patient is on buprenorphine-naloxone #4 chronic back pain-patient takes gabapentin, this will be continued Total clinical time spent by myself addressing the patient's medical issues, reviewing all of his data, and collaborating with patient's care team: 25 minutes Charges/Coding Visit Charges Inpatient E&M: 12688 Subs Hosp L1
--- NOTE | 2023-02-04 14:41 | ADDICTION ---
Pt was met with for Ramp assessment, ASAM, DUDIT, AUDIT, D/C Plan, LATHA, Mt. Status Exam, and to provide resources for ANTHONY tx after d/c. Pt presents as a&ox4 w/dysthymic mood and broad affect and self reported sxs of anxiety and depression. Pt presents to RAMP d/t struggling with daily alcohol consumption in excess of 8-12 'tall boys' of high percentage malt beverage, each day with inability to stop despite desire and attempt. Pt reports hx of severe opioid use disorder in remission past five years on opioid maintenance therapy w/Suboxone. Pt appears to meet ASAM criteria for 4.0LoC. Pt was open to scheduling outpatient services with Louie after d/c. Pt to follow up with Louie on Monday02/06/23 for walk in assessment to get set up with OP Counseling services, and potentially peer support services. Pt declines interest in residential tx but pt was provided resources and contact info for alternative inpatient and outpatient ANTHONY and MH tx. Pt was provided reading materials on ANTHONY, recovery, and relapse risk factors. Pt was engaged in d/c planning and pt reports he is planning to d/c to his home in [place]. His mom and sisters are local and supportive. Pt informed of twelve step meetings in [place]. Pt agreed to call Louie or nikki hernandez. if his ANTHONY/MH sxs worsen after d/c.
[2023-02-04] MEDS: Dicyclomine 10 MG Capsule 20 MG PO (20:12)
[2023-02-04] MEDS: traZODone 100 MG Tablet PO (20:12)
[2023-02-04] MEDS: Buprenorphine HCl 2 MG TAB.SUBL SL (21:03)
[2023-02-05] MEDS: hydrOXYzine PAM 25 MG Capsule 50 MG PO ×3 (00:14→11:49)
[2023-02-05] MEDS: Phenobarbital 32.4 MG Tablet 64.8 MG PO ×7 (00:14→22:04)
[2023-02-05 02:00] VITALS: BP 152/60; PULSE 68; RESP 16; TEMP 36.6; O2SAT 96
[2023-02-05] MEDS: Gabapentin 600 MG Tablet PO ×3 (05:16→22:04)
[2023-02-05 07:48] VITALS: O2SAT 96
[2023-02-05] MEDS: Folic Acid 1 MG Tablet PO (08:12)
[2023-02-05] MEDS: Thiamine Hydrochloride 100 MG Tablet PO (08:12)
[2023-02-05] MEDS: Multivitamins,Ther W-Minerals Tablet 1 TABLET PO (08:12)
--- NOTE | 2023-02-05 08:39 | PCM.PN.HOSP ---
Reason for Visit Reason for Visit: Diagnoses Alcohol use, unspecified with withdrawal, unspecified (02/03/23) Subjective Subjective Patient was seen and examined today, he has no complaints of any tremor or nervousness. Objective Data Objective Data Vital Signs: Vital Signs Temp Pulse Resp BP Pulse Ox O2 Del Method 97.8 F 68 16 152/60 H 96 Room Air 02/05/23 02:00 02/05/23 02:00 02/05/23 02:00 02/05/23 02:00 02/05/23 02:00 02/05/23 08:16 Oxygen Delivery Method Room Air Weight: 92.533 kg Body Mass Index (BMI) 27.6 Lab / Micro Data 02/03/23 16:40 02/03/23 16:40 Physical Exam Const alert, oriented x3, no apparent distress and healthy appearing General Appearance: cooperative, well kempt and well developed Orientation / Consciousness: awake, oriented to person, oriented to place and oriented to time HEENT normocephalic and moist oral mucous membranes Eyes PERRL, EOMs intact bilaterally and conjunctivae normal Neck supple, no JVD and thyroid normal General: trachea midline Resp normal respiratory effort and clear to auscultation bilaterally Auscultation: Negative for rales, rhonchi or wheezes Cardio regular rate, regular rhythm, S1 normal heart sound, S2 normal heart sound, no murmurs, no rub and no gallops GI normal to inspection, nondistended, normoactive bowel sounds, soft to palpation, non-tender and non-distended Extremity no clubbing, cyanosis or edema Skin no rashes or lesions noted General Skin Exam: no breakdown Neuro oriented x3, CN's II-XII intact bilaterally, moves all extremities, no focal motor deficits and no sensory deficits noted Sensorium / Orientation: awake and alert Speech: speech normal Psych affect normal Assessment & Plan Assessment/Plan (1) Alcohol withdrawal: PLAN: Plan 1. Acute alcohol withdrawal-patient will remain on his present medications including his phenobarb taper, he will be seen by addiction social work specialist, he is stated that he would like to do an outpatient detox program not an inpatient one. #2 chronic alcoholism-complicates care, medical course, recovery, and prognosis #3 past history of polysubstance abuse-patient is on buprenorphine #4 chronic back pain-patient takes gabapentin, this will be continued Total clinical time spent by myself addressing the patient's medical issues, reviewing all of his data, and collaborating with patient's care team: 25 minutes Charges/Coding Visit Charges Inpatient E&M: 27017 [facility] Hosp L1
[2023-02-05 10:00] VITALS: BP 131/92; PULSE 75; RESP 18; TEMP 36.6; O2SAT 99
[2023-02-05] MEDS: Buprenorphine HCl 2 MG TAB.SUBL SL (10:07)
[2023-02-05] MEDS: Acetaminophen 325 MG Tablet 650 MG PO ×2 (10:07→14:05)
[2023-02-05 14:01] VITALS: BP 148/101; PULSE 74; RESP 18; TEMP 36.6; O2SAT 100
--- NOTE | 2023-02-05 16:18 | NURSING ---
talked with Primary RN Sindi as she voiced concern that pt mentioning trying to seek out of here. Noted that patient has monitors view blocked. pt noted to be in the bathroom for extented period of time. Security called and requested HRO come up for removal of item obstructing monitor. Security on unit. security removed item obscuring monitors. HRO up to unit and talked with Patient.
[2023-02-05 19:36] VITALS: BP 160/102; PULSE 91; RESP 18; TEMP 36.5; O2SAT 100
[2023-02-05] MEDS: traZODone 100 MG Tablet PO (22:04)
[2023-02-06] MEDS: Phenobarbital 32.4 MG Tablet 64.8 MG PO ×2 (05:55→10:29)
[2023-02-06] MEDS: Gabapentin 600 MG Tablet PO (05:55)
[2023-02-06] MEDS: Thiamine Hydrochloride 100 MG Tablet PO (10:28)
[2023-02-06] MEDS: Folic Acid 1 MG Tablet PO (10:28)
[2023-02-06] MEDS: Multivitamins,Ther W-Minerals Tablet 1 TABLET PO (10:28)
[2023-02-06 10:30] VITALS: O2SAT 100
[2023-02-06] MEDS: Buprenorphine HCl 2 MG TAB.SUBL SL (10:41)
[2023-02-06] MEDS: Acetaminophen 325 MG Tablet 650 MG PO (10:41)
--- NOTE | 2023-02-06 11:37 | PCM.DC.SUM ---
Providers Date of Admission: 02/03/23 Date of Discharge: 02/06/23 Primary Care Physician: Cristina Rojas MD Reason For Visit: ETOH WITHDRAWL Diagnosis Discharge Diagnosis (1) Alcohol withdrawal: Status: Acute Code(s): F10.939 - Alcohol use, unspecified with withdrawal, unspecified Medications at Discharge Home Medications buprenorphine 8 mg-naloxone 2 mg sublingual tablet 0.5 tab sublingual TID drug remission 12/05/22 gabapentin 600 mg tablet 600 mg PO TID soto 12/05/22 Hospital Course Summary of Care Provided Minutes Spent on Discharge: 25 Hospital Course: Patient was admitted 02/03/2023 requesting detox from alcohol. Patient was admitted and detox protocol ordered. They completed their detox and were discharged in stable condition. On the day of discharge no new medical complaints voiced. Physical Exam Narrative General: Alert, oriented, no apparent distress HEENT: Atraumatic, normocephalic Eyes: extraocular movements grossly intact Neck: Supple Respiratory: normal respiratory effort Cardiovascular: no edema appreciated GI: nondistended Extremities: Moving all extremities Neuro: No overt focal neurological deficits Psych: Cooperative Weight / BMI Weight Weight: 92.533 kg Body Mass Index (BMI) 27.6 ABG / Lab / Microbiology Data 02/03/23 16:40 02/03/23 16:40 Meaningful Use Info Meaningful Use Diagnoses (Choose all that apply): None applicable Discharge Plan Admission Admit Date/Time: 02/03/23 16:40 Primary Reason for Your Visit: Alcohol withdrawal Attending Provider: Maria Tillman Primary Care Provider: Cristina Rojas Consulting Providers: Sophia Leach; Javier Shaver Instructions Patient Instructions: Addiction: Getting Help, Addiction Recovery Counseling Additional Instructions / Restrictions: - It is strongly advised that you refrain from any substance use. [facility] at [address] [place], [place] [id number] (ph [phone]) if you are interested in further resources Discharge Orders/Prescriptions Prescriptions: Continued gabapentin 600 mg tablet 600 mg PO TID Patient Comments: TAKE 1 TABLET BY MOUTH THREE TIMES A DAY buprenorphine-naloxone 8-2 mg tablet, sublingual 0.5 tab SUBLINGUAL TID Patient Comments: TAKE 1 & 1/2 TABLETS BY MOUTH DAILY Referrals / Follow Up: Cristina Rojas MD [Primary Care Provider] - Within 2 Weeks Disposition Disposition (needs filled in before D/C Order can be placed): Home, Self Care Charges/Coding Visit Charges Inpatient E&M: 91302 Disch Hosp
== END 2023-02-06 12:52 | disposition home or self-care (01) | DRG 773 ==
LOC: ED 16:27 → MS3 02-04 07:03
PROVIDERS: Admitting Provider Family Medicine; Emergency Provider Student in an Organized Health Care Education/Training Program; PCP Family Medicine; Visit Provider Internal Medicine
DX: F10.229 Alcohol dependence with intoxication, unspecified (principal); F11.11 Opioid abuse, in remission; F10.239 Alcohol dependence with withdrawal, unspecified; K70.10 Alcoholic hepatitis without ascites; F32.A Depression, unspecified; F17.210 Nicotine dependence, cigarettes, uncomplicated; M54.9 Dorsalgia, unspecified; F41.9 Anxiety disorder, unspecified; G89.29 Other chronic pain; Z79.899 Other long term (current) drug therapy
CPT/HCPCS: 80053; 80307; 80320; 83735; 84100; 85025; 86703; 86706; 86780; 86803; 87340; 96374; 99221; 99285; 99406; A4216; G0378; G0480

== ENCOUNTER → 2023-02-20 | Outpatient (CLI) | payer MEDICAID, SELFPAY ==
--- NOTE | 2023-02-20 | LIP_PTH ---
PATIENT: JESSE SHRESTHA LOC: [facility] U#:[id number] AGE/SX: 42/M ROOM: RE02/20/[address]: Dr. Gm Hoyos MD : 1980 BED: DIS: 02/20/2023 SPEC #: [id number] RECD: 02/20/23 09:25 STATUS: RONNIE ERIC #: [id number] CEDRIC: 02/20/23 00:[address]: Gm Hoyos DEPT: SURGICAL PATHOLOGY RECD BY: Karolina Mayorga ENTERED: 02/20/23 11:11 SP TYPE: LIPOMA OTHR DR: Cristina Rojas MD Tissues: A - Soft tissues, NOS B - Soft tissues, NOS Procedures: Surgery Specimen Level III HEADER OPERATION: Excision of right upper extremity lipoma x2 PRE-OP DIAGNOSIS: Excision of right upper extremity lipoma TISSUE SUBMITTED: A. Right upper extremity lipoma AC, B. Right upper extremity lipoma lower forearm MICROSCOPIC DIAGNOSIS A. Right upper extremity lipoma, excision: Angiolipoma. B. Right upper extremity lipoma lower forearm, excision: Angiolipoma. SJ: 02/21/2023 MICROSCOPIC DESCRIPTION Slides are reviewed. GROSS DESCRIPTION A. Received in fixative is one container labeled with the patient name and designated right upper extremity lipoma. The specimen consists of an ovoid piece of adipose tissue measuring 3.5 x 2.5 x 1.5 cm. Sections reveal yellow adipose cut surfaces without areas of hemorrhage, necrosis or cystic degeneration. Pelt Grader sections are submitted in one cassette. B. Received in fixative is one container labeled with the patient name and designated right upper extremity lipoma lower forearm. The specimen consists of an irregular piece of adipose tissue measuring 1.5 x 1.5 x 0.5 cm. Sections reveal yellow adipose cut surfaces without areas of hemorrhage, necrosis or cystic degeneration. Two smaller pieces adipose tissue are also noted measuring in aggregate 0. 5 x 0.5 x 0.2 cm. The specimen is totally submitted in one cassette. /RAFAELA:sg 02/20/23 TC:1 CPT: 74961 x2
== END | disposition home or self-care (01) ==
LOC: LABSPEC 10:39
PROVIDERS: PCP Family Medicine; Referring Provider Surgery; Visit Provider Surgery
DX: D17.21 Benign lipomatous neoplasm of skin and subcutaneous tissue of right arm (principal)
CPT/HCPCS: 88304

== ENCOUNTER 2023-05-03 09:09 | Day surgery (SDC) | payer MEDICAID, SELFPAY ==
[2023-05-03] VITALS (8 sets, daily range): BP systolic 112–135; BP diastolic 71–107; PULSE 65–86; RESP 16–17; TEMP 36.4–36.6; O2SAT 95–100; BMI 27.1
--- OUTSIDE RECORDS SUMMARY | 2023-05-03 09:40 | XMS RPT_ITS | CCD ---
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 Role Phone NO FAMILY DOCTOR, NO FAMILY DOCTOR Primary Care Unavailable CARLA CARRION Attending Unavailable HARISH BENTLEY Attending Unavailable NO FAMILY DOCTOR, NO FAMILY DOCTOR Primary Care Unavailable SARAVANAN NEAL Attending Unavailable NO FAMILY DOCTOR, NO FAMILY DOCTOR Primary Care Unavailable MERCEDES RIVAS Attending Unavailable NO FAMILY DOCTOR, NO FAMILY DOCTOR Primary Care Unavailable TAMY MOREIRA Attending Unavailable NO FAMILY DOCTOR, NO FAMILY DOCTOR Primary Care Unavailable [facility] Primary Care Provider [facility] Unavailable Unavailable None, No PCP Unavailable Unavailable ADELITA COLES Attending Unavailable [facility] Primary Care Unava ilable CLINIC, [facility] Primary Care Unava ilable ADELITA COLES Attending Unavailable Pablo Chery MD Primary Care Provider Ofelia Leonard Attending Unavailable NAYANARHIANNA DE LOS SANTOS Primary Care Unavailable MARYA PULIDO Attending Unavailable NAYANA CHALON Primary Care Unavailable ROB BELTRÁN Referring Unavailable Allergies Allergy Classification Reported Allergen(s) Allergy Type Date of Onset Reaction(s) Facility (2 sources) Morphine; Translations: [MORPHINE] Drug Allergy 07-31-2011 [facility] Medications Current Medications Medication Drug Class(es) Dates Sig (Normalized) Sig (Original) naproxen 500 mg oral tablet (2 sources) Nonsteroidal Anti-inflammatory Drug Start: 07-26-2018 take 1 tablet by mouth twice daily naproxen (NAPROSYN) 500 MG tablet Take 1 tablet by mouth 2 times daily for 20 doses 20 tablet 0 07/26/2018 Active Problems Active Problems Problem Classification Problem Date Documented Da te Episodic/Chronic Alcohol-related disorders (1 source) Alcohol dependence; Translations: [Alcohol dependence, uncomplicated] 04-12-2021 Chronic Anxiety disorders (1 source) Generalized anxiety disorder; Translations: [Generalized anxiety disorder] 02-12-2010 Chronic E Codes: Struck by; against (1 source) Striking against or struck by other objects, initial encounter; Translations: [Striking against or struck by other objects, init encntr] Onset: 01-28-2022 Episodic Other aftercare (1 source) prison (current) use of aspirin Onset: 03-06-2018 Episodic Other connective tissue disease (1 source) Partial thickness rotator cuff tear; Translations: [Partial tear of rotator cuff] Episodic Other connective tissue disease (1 source) Other shoulder lesions, unspecified shoulder; Translations: [Rotator cuff tendonitis] Episodic Other connective tissue disease (2 sources) Pain in left finger(s); Translations: [Pain in left finger(s)] Onset: 01-28-2022 Episodic Other injuries and conditions due to external causes (1 source) Unspecified injury of head, initial encounter; Translations: [Injury of head, initial encounter] Onset: 03-28-2023 Episodic Other non-traumatic joint disorders (2 sources) Shoulder pain; Translations: [Left shoulder pain, unspecified chronicity] Episodic Pancreatic disorders (not diabetes) (1 source) Acute pancreatitis; Translations: [Acute pancreatitis without necrosis or infection, unspecified] 02-12-2010 Episodic Poisoning by other medications and drugs (1 source) Narcotic poisoning of undetermined intent; Translations: [Narcotic overdose, accidental or unintentional, initial encounter ([facility])] Episodic Residual codes; unclassified (1 source) Tobacco use Onset: 03-06-2018 Episodic Skull and face fractures (1 source) Zygomatic fracture, left side, initial encounter for closed fracture; Translations: [Closed fracture of left zygomatic arch, initial encounter ([facility])] Onset: 03-28-2023 Episodic Substance-related disorders (2 sources) Nicotine dependence, unspecified, uncomplicated; Translations: [Opioid dependence, uncomplicated] Onset: 09-13-2017 Chronic Substance-related disorders (1 source) Overdose of opiate; Translations: [Opiate overdose, accidental or unintentional, initial encounter ([facility])] Episodic Unclassified (2 sources) Pain in right finger(s); Translations: [Pain in right finger(s)] Onset: 09-13-2017 Unclassified (2 sources) Pain in right hand; Translations: [Pain in right hand] Onset: 09-09-2017 Unclassified (3 sources) Contusion of scalp, initial encounter; Translations: [Contusion of scalp, initial encounter] Onset: 03-06-2018 Unclassified (1 source) Striking against other stationary object, initial encounter Onset: 03-06-2018 Unclassified (1 source) Activity, rough housing and horseplay Onset: 03-06-2018 Unclassified (2 sources) Fever, unspecified; Translations: [Fever, unspecified] Onset: 06-25-2017 Unclassified (1 source) Contusion of right hand, initial encounter Onset: 09-13-2017 Unclassified (2 sources) Unsp injury of right wrist, hand and finger(s), init encntr; Translations: [Unsp injury of right wrist, hand and finger(s), init encntr] Onset: 09-13-2017 Unclassified (1 source) Oth cause of strike by thrown, projected or fall obj, init Onset: 09-13-2017 Unclassified (3 sources) Unspecified injury of head, initial encounter; Translations: [Unspecified injury of head, initial encounter] Onset: 03-06-2018 Unclassified (1 source) Contusion of right index finger w/o damage to nail, init Onset: 09-13-2017 Unclassified (1 source) Activity, other specified Onset: 09-09-2017 Unclassified (1 source) Diarrhea, unspecified Onset: 06-25-2017 Past or Other Problems Problem Classification Problem Date Documented Da te Episodic/Chronic Headache; including migraine (2 sources) Headache; Translations: [Headache] Onset: 06-25-2017 Episodic Melanomas of skin (1 source) Personal history of malignant melanoma of skin Onset: 09-13-2017 Episodic Nausea and vomiting (3 sources) Nausea with vomiting, unspecified; Translations: [Nausea with vomiting, unspecified] Onset: 06-25-2017 Episodic Other and unspecified benign neoplasm (1 source) Benign tumor of endocrine pancreas; Translations: [Benign neoplasm of endocrine pancreas] Onset: 11-07-2005 01-10-2010 Episodic Other liver diseases (1 source) Abnormal levels of other serum enzymes Onset: 06-25-2017 Episodic Results Test Name Value Interpretation Reference Range Facil ity Vital Signs Date Time Vital Sign Value Performing Clinician Alfonso may 10-08-2019 01:30-0400 BP Diastolic 74 mm[Hg] [facility] [place] 10-08-2019 01:30-0400 BP Systolic 115 mm[Hg] [facility] [place] 10-08-2019 01:30-0400 Pulse (Heart Rate) 123 /min [facility] [place] 10-08-2019 01:30-0400 Pulse Oximetry 94 % [facility] [place] 10-08-2019 01:30-0400 Respiratory Rate 20 /min [facility] [place] 10-07-2019 23:26-0400 BMI (Body Mass Index) 28.59 kg/m2 [facility] [place] 10-07-2019 23:26-0400 Body Temperature 98.4 [degF] [facility] [place] 10-07-2019 23:26-0400 Body weight 92.[address] [facility] [place] 10-07-2019 23:26-[address] [facility] [place] 09-18-2019 11:13-0400 BMI (Body Mass Index) 28.59 kg/m2 [facility] Work Phone: 09-18-2019 11:13-0400 Body weight 92.99 kg [facility] Work Phone: 09-18-2019 11:13-0400 BSA (Body Surface Area) 2.13 m2 [facility] Work Phone: 09-18-2019 11:13-0400 Height 180.34 cm [facility] Work Phone: 09-04-2019 01:00-0400 Pulse Oximetry 97 % Adelita [facility] [place] 09-04-2019 00:30-0400 BP Diastolic 57 mm[Hg] Adelita [facility] [place] 09-04-2019 00:30-0400 BP Systolic 97 mm[Hg] Ad[facility] [place] 09-03-2019 23:44-0400 BMI (Body Mass Index) 27.12 kg/m2 [facility]el[facility] [place] 09-03-2019 23:44-0400 Body Temperature 98.71 [degF] Adelita [facility], [place] 09-03-2019 23:44-0400 Body weight 90.72 kg Ad[place]ita [place] 09-03-2019 23:44-0400 Height 182.9 cm Ad[place] 09-03-2019 23:44-0400 Pulse (Heart Rate) 110 /min Adelita [place] 09-03-2019 23:44-0400 Respiratory Rate 20 /min [place], [place] Encounters Encounter Date Encounter Type Care Provider Facility Start: 04-19-2023 End: 04-20-2023 ambulatory [facility] Facility:[facility] Start: 03-28-2023 End: 03-28-2023 Emergency department patient visit [facility] Facility:[facility] Start: 01-28-2022 End: 01-28-2022 Emergency department patient visit Ofelia Beltran [place] Facility:[id number] Start: 10-14-2021 ambulatory [facility] [place] Plan of Treatment Date Care Activity Detail Author Start: 12-16-2021 Influenza vaccination INFLUENZA (Season Ended) [facility] Start: 12-17-2019 Influenza vaccination Flu vaccine (Season Ended) [place], [place] Start: 2016 LIPID SCREEN LIPID SCREEN [facility] Start: 2000 DTaP/Tdap/Td vaccine (1 - Tdap) DTaP/Tdap/Td vaccine (1 - Tdap) [place] Start: 2000 Urine microalbumin profile DTAP,TDAP,TD (1 - Tdap) [facility] Start: 1999 HEPATITIS C SCREENING HEPATITIS C SCREENING [facility] Start: 1999 HIV SCREENING HIV SCREENING [facility] Start: 1996 HIV screening HIV screen [place], [place] Start: 1993 Adult depression screening assessment DEPRESSION SCREENING [facility] Start: 1987 PNEUMOCOCCAL (1 - PCV) PNEUMOCOCCAL (1 - PCV) [facility] Start: 1987 Pneumococcal 0-64 years Vaccine (1 of 1 - PPSV23) Pneumococcal 0-64 years Vaccine (1 of 1 - PPSV23) [place], [place] Start: 1986 COVID-19 VACCINE (#1) COVID-19 VACCINE (#1) [facility] Start: 1982 Varicella vaccine (1 of 2 - 2-dose childhood series) Varicella vaccine (1 of 2 - 2-dose childhood series) [place], [place] Immunizations Immunization Date Immunization Notes Care Provider Jed navas NEGATED: Highlighted row has not occurred!09-24-2017 tetanus toxoid, reduced diphtheria toxoid, and acellular pertussis vaccine, adsorbed Adelita Coles [place], [place] Payers Date Payer Category Payer Medicaid [employer] MEDICAID 2020-Present [phone] [address] [place] [address] Medicaid 2018 Medicaid MEDICAID [facility] DEPT OF JOB xxxxxxxxxxxx 2018-Present [phone] [address] [place] [address] xxxxxxxxxxxx [id number] 2018 Self-pay [id number] 2014 Unknown [employer] AGE [employer] xxxxxxxxxxx 2014-Present [phone] [address] [place] [address] xxxxxxxxxxx [id number] 2014 Unknown [id number] 1981 Unknown [id number] 1981 Unknown [id number] .356 1981 Unknown [id number] .356 1981 Unknown [id number] .356 1981 Unknown [id number] [id number] .355 1981 Unknown [id number] [id number] .355 1981 Unknown [id number] [id number] .355 1981 Unknown [id number] [id number] .355 1981 Unknown [id number] [id number] .355 1981 Unknown [id number] [id number] .182 1981 Unknown [id number] [id number] .182 1981 Unknown [id number] Medicaid [id number] Private Health Insurance [id number] Social History Date Type Detail Facility [facility]: [facility]03[facility] History of tobacco use Cigarette Smoker M [place], [place] Start: 09-03-2019 Cigarettes smoked current (pack per day) - Reported [place], [place] Start: 09-03-2019 Alcohol intake 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 (finding) [place], [place] Start: 1980 Sex Assigned At Not on file M jaquelin [facility] Exposure to SARS-CoV -2 (event) Unable to assess Madonna [facility] Start: 09-05-2019 Alcohol intake Current drinke r of alcohol (finding) [facility] Start: 07-31-2011 History SDOH Alcohol Comment occ [facility] Functional Status Date Assessment Result Facility NEGATED: Highlighted row Functional performance Functional status health issues are not documented [facility] Work Phone: Mental Status Date Assessment Result Facility NEGATED: Highlighted row Cognitive function [Interpretation] Cognitive status health issues are not documented Disease [facility] Work Phone: Progress note 10-14-2021 Note Date & Type Note Facility 10-14-2021 Note HNO ID: [id number] Author: Mikala Marshall MA Service: ? Author Type: ? Type: Progress Notes Filed: 10/14/2021 12:49 PM Note Text: POPULATION HEALTH NAVIGATION OUTREACH Action/FYI Message regarding scheduling a Wellness visit Unable to send a Vedicis message Pt identified by name and : NO Outreach Outcome/Action Unable to reach patient: Left message Did you use a PCP flex slot to schedule this appointment? N/A Reason for Outreach HCC or suspected condition Payer: Payor: [employer] MEDICAID / Plan: [employer] MEDICAID / Product Type: Medicaid / Care Gap Reviewed:: Annual Wellness visit Reminder: Reminder note to check Health Maintenance for items below Health Maintenance items due: COVID-19 VACCINE(1) Never done PNEUMOCOCCAL(1 - PCV) Never done DEPRESSION SCREENING Never done HEPATITIS C SCREENING Never done HIV SCREENING Never done DTAP,TDAP,TD(1 - Tdap) Never done LIPID SCREEN Never done Message Sent to Practice: No Navigation Signature: Mikala Marshall MA October 14, 2021 12:48 PM [facility] Clinical Note 10-14-2021 Note Date & Type Note Facility 10-14-2021 Note Patient Outreach (CARROL TNAV) JESSE SHRESTHA ([id number]) 1980 M Date Time Provider Department 10/14/21 MIKALA MARSHALL During your visit today, we recorded the following information about you: Mikala Marshall MA 10/14/2021 12:49 PM Signed POPULATION HEALTH NAVIGATION OUTREACH Action/FYI Message regarding scheduling a Wellness visit Unable to send a Mychart message Pt identified by name and : NO Outreach Outcome/Action Unable to reach patient: Left message Did you use a PCP flex slot to schedule this appointment? N/A Reason for Outreach HCC or suspected condition Payer: Payor: [employer] MED[employer]ID / Plan: [employer] MEDICAID / Product Type: Medicaid / Care Gap Reviewed:: Annual Wellness visit Reminder: Reminder note to check Health Maintenance for items below Health Maintenance items due: COVID-19 VACCINE(1) Never done PNEUMOCOCCAL(1 - PCV) Never done DEPRESSION SCREENING Never done HEPATITIS C SCREENING Never done HIV SCREENING Never done DTAP,TDAP,TD(1 - Tdap) Never done LIPID SCREEN Never done Message Sent to Practice: No Navigation Signature: Mikala Marshall MA October 14, 2021 12:48 PM Allergies As of Date: 10/14/2021 Noted Allergy Reaction MORPHINE 07/31/2011 4 - Hives Date Reviewed: 09/05/2019 Reviewed by: Javier Palomares LPN - Fully Assessed Reason for Visit: Population Health Navigation Outreach [3910] Cmt: HCC Problem List As Of Date 10/14/2021 Noted Resolved BENIGN [place]LETS LANGERHAN [D13.7] 11/07/2005 Alcohol addiction (HCC) [F10.20] Acute pancreatitis [K85.90] ASHLEY (generalized anxiety disorder) [F41.1] Encounter Status:Closed by MIKALA MARSHALL MA on 10/14/21 [facility] History of Present illness Narrative 10-14-2021 Mikala Marshall MA - 10/14/2021 12:46 PM EDT Note Date & Type Note Facility 10-14-2021 History of Presen t illness Narrative POPULATION HEALTH NAVIGATION OUTREACH Action/FYI Message regarding scheduling a Wellness visit Unable to send a Mychart message Pt identified by name and : NO Outreach Outcome/Action Unable to reach patient: Left message Did you use a PCP flex slot to schedule this appointment? N/A Reason for Outreach HCC or suspected condition Payer: Payor: [place] MEDICAID / Plan: [employer]2 [employer] MEDICAID / Product Type: Medicaid / Care Gap Reviewed:: Annual Wellness visit Reminder: Reminder note to check Health Maintenance for items below Health Maintenance items due: COVID-19 VACCINE(1) Never done PNEUMOCOCCAL(1 - PCV) Never done DEPRESSION SCREENING Never done HEPATITIS C SCREENING Never done HIV SCREENING Never done DTAP,TDAP,TD(1 - Tdap) Never done LIPID SCREEN Never done Message Sent to Practice: No Navigation Signature: Mikala Marshall MA October 14, 2021 12:48 PM documented in this encounter [facility] Summary Purpose Family History No Family History Records Found Father Name Dates Details Family history of cardiac di sorder(V17.49, Z82.49) Status:Active Family history of malignant neoplasm(V16.9, Z80.9) Status:Active Family history of Lung abnor mality(518.89, J98.4) Status:Active Father Name Dates Details Family history of cardiac di sorder(V17.49, Z82.49) Status:Active Family history of malignant neoplasm(V16.9, Z80.9) Status:Active Family history of Lung abnor mality(518.89, J98.4) Status:Active Advance Directives No Advanced Directives Records FoundDocuments on File Type Date Recorded 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 * Alcohol - Drug - or Poison Ingestion (Scottish) documented in this encounter* Instructions* Adelita Coles MD - 10/08/2019 CALL [facility] IF WANTING HELP WITH DRUG/ ALCOHOL USE. * Attachments The following attachments cannot be sent through Care Everywhere. * Alcohol - Drug - or Poison Ingestion (Scottish) documented in this encounter Assessments Diagnosis Narcotic overdose, accidental or unintentional, initial encounter (HCC) Diagnosis Opiate overdose, accidental or unintentional, initial encounter (HCC) Additional Source Comments (unrecognized sect ion and content) No Status Records FoundNo Status Records FoundNo Status Records FoundNo Status Records FoundNo Status Records FoundNo Status Records FoundNo Status Records Found INFORMATION SOURCE (unrecogn ized section and content) DATE CREATED AUTHOR AUTHOR'S ORGANIZ ATION 05/12/2018 [facility] DATE CREATED AUTHOR AUTHOR'S ORGANIZ ATION 11/03/2019 [facility] [place] DATE CREATED AUTHOR AUTHOR'S ORGANIZ ATION 11/04/2019 [facility] DATE CREATED AUTHOR AUTHOR'S ORGANIZ ATION 10/15/2021 [facility] DATE CREATED AUTHOR AUTHOR'S ORGANIZ ATION 02/06/2022 [facility] DATE CREATED AUTHOR AUTHOR'S ORGANIZ ATION 04/23/2023 [facility] Reason for Visit (unrecogniz ed section and content) Reason Onset Date Comments Population Health Navigation Outreach 10/14/2021 HCC Source Comments (unrecognize d section and content) In the event this informatio n is protected by the Federal Confidentiality of Alcohol and Drug Abuse Patient Records regulations: The Federal rules restrict any use of the information to criminally investigate or prosecute any alcohol or drug abuse patient.[facility] Care Teams (unrecognized sec tion and content) FOR RECORDS PERTAINING TO PATIENTS WHO ARE OR HAVE BEEN ENROLLED IN A CHEMICAL DEPENDENCY/SUBSTANCEABUSE PROGRAM, SOME INFORMATION MAY BE OMITTED. This clinical summary was aggregated from multiple sources. Caution should be exercised in using it in the provision of clinical care. This summary normalizes information from multiple sources, and as a consequence, information in this document may materially change the coding, format and clinical context of patient data. In addition, data may be omitted in some cases. CLINICAL DECISIONS SHOULD BE BASED ON THE PRIMARY CLINICAL RECORDS. [facility] [employer] [facility]. provides no warranty or guarantee of the accuracy or completeness of information in this document.
[2023-05-03] MEDS: Lactated Ringers 1,000 ML 15 ML IV (09:42)
--- NOTE | 2023-05-03 10:30 | LIP_PTH ---
PATHOLOGY RESULTS PATIENT: JESSE SHRESTHA [place] [facility] [place] U[place][id number] AGE/SX: 42/M ROOM: RE05/03/[address]: Dr. Gm Hoyos MD : 1980 BED: DIS: 05/03/2023 SPEC #: [id number] RECD: 05/04/23 08:12 STATUS: RONNIE ERIC #: [id number] CEDRIC: 05/03/23 10:[address]: Gm Hoyos DEPT: SURGICAL PATHOLOGY RECD BY: Karolina Mayorga ENTERED: 05/04/23 08:15 SP TYPE: LIPOMA OTHR DR: Cristina Rojas MD Tissues: Soft tissues, NOS Soft tissues, NOS Soft tissues, NOS Soft tissues, NOS Soft tissues, NOS Soft tissues, NOS Soft tissues, NOS Soft tissues, NOS Soft tissues, NOS Soft tissues, NOS Soft tissues, NOS Procedures: Surgery Specimen Level III HEADER OPERATION: Excision multiple left back lipomas PRE-OP DIAGNOSIS: Mass of subcutaneous tissue of multiple sites TISSUE SUBMITTED: A - Lower midline back lipoma #1, B - Lower midline back lipoma #2, C - Lower back lateral lipoma #1, D - Lower back lateral lipoma #2, E - Left mid back lateral lipoma #1, F - Left mid back lateral lipoma #1, G - Left mid back lateral lipoma #2, H - Left midline upper back lipoma #1, I - Left midline upper back lipoma #2, J - Left midline upper back lipoma #3, K - Left upper back lipoma MICROSCOPIC DIAGNOSIS A. Soft tissue mass lower midline back #1, excision: Mature adipose tissue, Lipoma. B. Soft tissue mass lower midline back #2, excision: Mature adipose tissue, Angiolipoma. C. Soft tissue mass lower back lateral #1, excision: Mature adipose tissue, Angiolipoma. D. Soft tissue mass lower back lateral #2, excision: Mature adipose tissue, Angiolipoma. E. Soft tissue mass left midline back, excision: Mature adipose tissue, Angiolipoma. F. Soft tissue mass left mid lateral back #1, excision: Mature adipose tissue, Angiolipoma. G. Soft tissue mass left mid lateral back #2, excision: Mature adipose tissue, Angiolipoma. H. Soft tissue mass left midline upper back #1, excision: Mature adipose tissue, Lipoma. I. Soft tissue mass left midline upper back #2, excision: Mature adipose tissue, Angiolipoma. J. Soft tissue mass left midline upper back #3, excision: Mature adipose tissue, Angiolipoma. K. Soft tissue mass left upper back, excision: Mature adipose tissue, Angiolipoma. AM:alejandro 05/05/2023 MICROSCOPIC DESCRIPTION Slides are reviewed. GROSS DESCRIPTION A - Received in fixative is one container labeled with the patient's name and designated lower midline lipoma #1. The specimen consists of an ovoid fragment of yellow fatty tissue measuring 4.0 x 3.2 x 1.5 cm. Serial sections reveal homogenous yellow cut surfaces. [employer] sections are submitted in one cassette. B - Received in fixative is one container labeled with the patient's name and designated lower midline lipoma #2. The specimen consists of multiple irregular fragments of yellow-lubin fatty tissue that in aggregate measure 9.5 x 6.0 x 2.0 cm. Serial sections reveal homogenous yellow cut surfaces. [employer] sections are submitted in two cassettes. C - Received in fixative is one container labeled with the patient's name and designated lower back lateral lipoma #1. The specimen consists of multiple irregular fragments of lubin-yellow fatty tissue that in aggregate measure 12.5 x 8.0 x 2.5 cm. Serial sections reveal homogenous yellow cut surfaces. [employer] sections are submitted in two cassettes. D - Received in fixative is one container labeled with the patient's name and designated lower back lateral lipoma #2. The specimen consists of multiple irregular fragments of lubin-yellow fatty tissue that in aggregate measure 14.0 x 12.0 x 3.8 cm. Serial sections reveal homogenous yellow cut surfaces. [employer] sections are submitted in three cassettes. E - Received in fixative is one container labeled with the patient's name and designated left midline back lipoma. The specimen consists of multiple irregular fragments of lubin-yellow fatty tissue that in aggregate measure 6.6 x 5.0 x 2.3 cm. Serial sections reveal homogenous yellow cut surfaces. [employer] sections are submitted in two cassettes. F - Received in fixative is one container labeled with the patient's name and designated left mid back lipoma #1. The specimen consists of multiple irregular fragments of lubin-yellow fatty tissue that in aggregate measure 14.0 x 11.0 x 2.8 cm. Serial sections reveal homogenous yellow cut surfaces. [employer] sections are submitted in three cassettes. G - Received in fixative is one container labeled with the patient's name and designated left mid back lateral lipoma #2. The specimen consists of multiple irregular fragments of lubin-yellow fatty tissue that in aggregate measure 7.0 x 5.0 x 2.0 cm. Serial sections reveal homogenous yellow cut surfaces. [employer] sections are submitted in two cassettes. H - Received in fixative is one container labeled with the patient's name and designated left midline upper back lipoma #1. The specimen consists of a single lobulated fragment of yellow fatty tissue measuring 5.5 x 4.0 x 1.5 cm. Serial sections reveal homogenous yellow cut surfaces. [employer] sections are submitted in two cassettes. I - Received in fixative is one container labeled with the patient's name and designated left midline upper back lipoma #2. The specimen consists of two irregular fragments of yellow fatty tissue measuring in aggregate 3.5 x 2.0 x 1.0 cm. Serial sections reveal homogenous yellow cut surfaces. [employer] sections are submitted in one cassette. J - Received in fixative is one container labeled with the patient's name and designated left midline upper back lipoma #3. The specimen consists of an irregular fragment of lubin-yellow fatty tissue measuring 2.6 x 2.0 x 1.0 cm. Serial sections reveal homogenous yellow cut surfaces. [employer] sections are submitted in one cassette. K - Received in fixative is one container labeled with the patient's name and designated left upper back lipoma. The specimen consists of a single irregular fragment of yellow fatty tissue measuring 3.5 x 2.5 x 1.5 cm. Serial sections reveal homogenous yellow cut surfaces. [employer] sections are submitted in one cassette. / AM:alejandro 05/04/2023 TC:1 CPT: 97139 x11
--- NOTE | 2023-05-03 10:57 | HP.PCM_ITS ---
History and Physical Date of Admission: 05/03/23 OFFICE VISIT Date of Service: 04/25/23 MR#: [id number] Acct: [id number] Name: JESSE PEREZ Rep #: [id number] : 1980 Provider: Dr. Gm Hoyos MD Age/Sex: 42/M Location: [facility] Status: Signed Intake Vital Signs 02/03/2318:49 04/25/2408:27 Height 6 ft 6 ft Weight: 209 lb BMI 28.3 BP 150/90 H Blood Pressure Location Rt brachial Position Sitting Respiration 17 Pulse 85 Pulse Source Monitor Pulse Oximetry (%) 96 Oxygen Delivery Method room air Intake Visit Reasons: DISCUSS SURGERY Chief Complaint: discuss surgery Is patient in pain?: No Allergies No Known Allergies Allergy (Verified 04/25/23 09:28) Medications buprenorphine 8 mg-naloxone 2 mg sublingual tablet 0.5 tab sublingual TID drug remission 12/05/22 [History Confirmed 04/25/23] gabapentin 600 mg tablet 600 mg PO TID soto 12/05/22 [History Confirmed 04/25/23] PFSH Medical History Alcohol abuse Familial multiple lipomatosis History of malignant melanoma of skin Hydrocele Injury of head and neck Smoker Wears contact lenses Wears glasses Surgical History Hx of hernia repair S/P excision of lipoma Family History Mother Skin cancerFather Glioblastoma Familial multiple lipomatosis Social History household members: none Smoking Status: Current every day smoker tobacco type: cigarettes Electronic Cigarette Use: with nicotine alcohol intake: current alcohol intake frequency: 3 or more drinks per day details: 8-14 Tall boys daily. 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 Clean status on buprenorphine. HPI HPI HPI: Patient returns for discussion around return to the OR for lipoma excision. His last visit was 02/28/2023 for wound check after excision of lipoma from right forearm. He confirms that he has healed well following that excision. He updates me to state that he broke his zygomatic arch on the left side while at work and had to quit that employment. He shares that he is currently unemployed but is awaiting a job application with [employer] and wishes to proceed with further lipoma removals and his downtime. He shares that his back lipomas are the most bothersome of the lipomas that remain. Below is recapitulated from patient's prior visit for ease of review: Patient is a 42-year-old male who arrives for a wound check visit after undergoing excision of subcutaneous masses x2 of his right upper extremity on 02/20/2023 during a clinic visit. He reports that he is trying to be good and keeping the area covered at work. He states that he has been keeping the free of a shower water when he showers and is simply been trying to apply hydrogen peroxide around the Steri-Strips. He denies any significant pain or discomfort. ROS General General: No weight change, appetite, fatigue, colon cancer, breast cancer or weakness HEENT HEENT: No difficulty swallowing, eye injury, eye surgery, swollen glands or hoarseness Endo Endocrine: No thyroid disease, diabetes mellitus, thyroid cancer, Hair loss, heat intolerance or cold intolerance Skin Skin: Yes changing moles; No rash Musc Musculoskeletal: Yes back problems; No arthritis, rheumatoid arthritis, gout or joint pain Cardio Cardiovascular: No murmur, pacemaker, heart disease, atrial fibrillation, high blood pressure, heart attack, heart stent, palpitations, shortness of breat with exertion or chest pain Psych Psychiatric: Yes anxiety; No depression or hearing voices Resp Respiratory: No shortness of breath, No sleep apnea, No cough, No COPD, No asthma, No emphysema and No wheezing Gastro Gastrointestinal: No abdominal pain, No nausea or vomiting, No diarrhea, No constipation, No blood in stool, No acid reflux, No hemorrhoids, No ulcers, No gallbladder problem and No black,tarry stools Additional Details: PANCREATITIS Nayan Hematologic: No blood thinners, No blood disorders, No bleeding, No anemia and No blood clots Neuro Neurologic: No system reviewed and no additional complaints, except as documented, No as per HPI, No abnormal gait, No abnormal hearing, No abnormal movements, No abnormal speech, No behavioral changes, No burning sensations, No confusion, No convulsions, No disequilibrium, No dizziness, No localized weakness, No frequent falls, No headache(s), No lack of coordination, No loss of vision, No memory loss, No numbness, No other visual disturbances, No radicular pain, No restless legs, No sensory deficit, No syncope, No tingling, No tremor(s), No weakness and No other Exam Const General: cooperative, healthy appearing and comfortable Orientation: alert, awake and oriented x3 Musc Other: Patient with at least 8 distinct lipomas of the left back including a large 1 across the mid back located deeply and a small superficial lipoma directly over the spinous process of the vertebral body in the distal thoracic spine region. Assessment and Plan Assessment and Plan (1) Mass of subcutaneous tissue of multiple sites: Status: Chronic Comment: Patient with at least 35 subcutaneous masses across his anterior abdominal wall, back, anterior thigh, and left upper extremity. Based on the fact that out of patient's first operative trip we removed 18 lipomas and do not appear to have excised half of the total number, this appears to be an underestimate. I most recently removed 2 lipomas of the right forearm (volar aspect) in clinic [place]. Mr. Perez shares that the lipomas of his left back are the most symptomatic of the remaining lipomatous. On exam identify at least 8 discrete lesions. By review of his CT imaging at least some of these lesions extend to the level of the muscular fascia deeply. Therefore, it is my recommendation to proceed with excision of this allotment of lipomas rather than entertaining an extremity site as well. I am opting for a general anesthetic to facilitate both a safe and comfortable procedure. On the postoperative side of patient's care I have recommended that he plan for at least 1 week off work and several additional weeks of light duty given the concern for tension across the sites. Plan: Operative excision of left back lipomatous masses to be performed with outpatient disposition but as a general anesthesia. I have examined the patient and the H&P has been reviewed. There are no clinical changes since date of exam. The lipoma sites have been marked patient is awake and able to cooperate/assist with identification. A total of 11 sites were identified. Will proceed to the operating room now for excision of these lesions.
[2023-05-03] MEDS: Cefazolin 2 GM in 0.9% Normal Saline (100mL Bag) 100 ML IV (11:16)
[2023-05-03] MEDS: Bupivacaine 0.25% 30 ML Vial ×2 (13:37→14:40)
--- NOTE | 2023-05-03 15:54 | OP.PCM_ITS ---
Report of Operation Date of Procedure: 05/03/23 Pre-Operative Diagnosis: Multiple back lipomatous masses Post-Operative Diagnosis: Same Surgery/Procedure Performed:: Excision of multiple back lipomatous masses Description of Surgical Findings:: ? 11 separate incisions were used to remove lipomas?many times removing multiple lipomas from a single incision as patient demonstrated well encapsulated lipomas at various depths Surgeon: Gm Hoyos practice support specialist: Petrona Gutierrez Type of Anesthesia: General/Supplemental Anesthesiologist: Delano Edouard Specimen's removed: 1. Lower midline back lipoma #1 2. Lower midline back lipoma #2 3. Lower back lateral lipoma #1 4. Lower back lateral lipoma #2 5. Left midline back lipoma #2 6. Left mid back lateral lipoma #1 7. Left mid back lateral lipoma #2 8. Left midline upper back lipoma #1 9. Left midline upper back lipoma #2 10. Left midline upper back lipoma #3 Drains: None Estimated Blood Loss (mL): 30 Description of Procedure: After appropriate identification in preoperative holding area patient was brought to the operating room where he was administered IV antibiotics and underwent general endotracheal intubation. He was then positioned in a right lateral decubitus position on a beanbag to expose his left back taking care to pad his ulnar nerve and place an axillary roll prior to setting her beanbag. His back was then prepped and draped in the usual sterile fashion. Then in a serial fashion each preoperatively?marked site for lipomas was anesthetized with instillation of local anesthetic and sharply incised. These incisions (ranging in length from 4 cm most inferiorly and superiorly to 7 cm in the lateral aspect of the mid back) were deepened with electrocautery and a combination of blunt dissection and selective electrocautery was used to extricate well?encapsulated lipomatous masses from the surrounding soft tissue and the deeper muscle fibers/muscular fascia. A total of 11 incisions were made. Specimens were extracted?many times with multiplicity?from these 11 incisions and were submitted by anatomical location for pathologic processing. The specimens ranged in size from approximately 8 cm in diameter laterally in the mid back to just 2 to 3 cm for the most superior lipomas. After confirming hemostasis in each surgical cavity, the cavity was irrigated with warm sterile saline and then closed in layers using 2-0 and 3-0 Vicryl for the deeper layers and 4-0 Monocryl for a subcuticular skin closure. Additional local anesthetic was infiltrated about each site prior to suture closure. A total volume of 40 to mL of 0.25% bupivacaine plain local anesthetic was used for the operation. Each site was then dressed with Steri-Strips and either an OpSite or Telfa and Tegaderm?depending on size. Patient was extubated and taken to PACU for ongoing recovery following the procedure. Grafts/Implants Used: None Complications None Admit VTE Documentation VTE Mechan Device Prophylaxis: SCD's
--- NOTE | 2023-05-03 15:57 | DCINST_ITS ---
Discharge Instructions Diet Discharge Diet: No restrictions Activity Discharge Activity: May Not Drive (No driving while using narcotic pain medication) May shower in (days): 2 Ice area for (Minutes): 20 Lifting Restrictions: No lifting greater than 15 pounds for 2 weeks after surgery Additional Activity Instructions:: Particularly limit activity of left upper extremity Dressing / Incision Call your doctor if your incision/area has: Sudden Increased Bleeding, Increased Pain/ Swelling, Increased Redness, Foul Smelling Discharge and Swelling at the incision site Call your doctor if you observe: Fever of 101 or Higher Remove Dressing in: 2 days (Please leave Steri-Strips intact until they fall off spontaneously or are taken off at your follow-up visit) Cleanse incision/area with: Soap & Water Follow Up Care Please Follow Up With: Gm Hoyos MD When: 1 to 2 weeks postop Test Results: Test results from this visit will be discussed in further detail at your follow- up appointment, if applicable. Discharge Plan Admission Primary Reason for Your Visit: Excision of multiple lipomas Attending Provider: Gm Hoyos Primary Care Provider: Cristina Rojas Discharge Orders/Prescriptions Prescriptions: New tramadol 50 mg tablet 50 mg PO Q6H PRN (Reason: pain) 7 Days Qty: 20 0RF No Action gabapentin 600 mg tablet 600 mg PO TID Patient Comments: TAKE 1 TABLET BY MOUTH THREE TIMES A DAY buprenorphine-naloxone 8-2 mg tablet, sublingual 0.5 tab SUBLINGUAL TID Patient Comments: TAKE 1 & 1/2 TABLETS BY MOUTH DAILY Referrals / Follow Up: Cristina Rojas MD [Primary Care Provider] - Disposition Disposition (needs filled in before D/C Order can be placed): Home, Self Care
[2023-05-03] MEDS: traMADol 50 MG Tablet PO (16:30)
== END 2023-05-03 16:45 | disposition home or self-care (01) ==
LOC: SDC 09:11 → AC 09:13
PROVIDERS: PCP Family Medicine; Referring Provider Surgery; Visit Provider Surgery
PROC: (CPT 21933; principal; 2023-05-03 10:15)
DX: D17.1 Benign lipomatous neoplasm of skin and subcutaneous tissue of trunk (principal); F17.210 Nicotine dependence, cigarettes, uncomplicated; Z79.899 Other long term (current) drug therapy
CPT/HCPCS: 21933; 00300; 88304; J7120; J2405

== ENCOUNTER → 2023-11-09 | Outpatient (CLI) | payer MEDICAID, SELFPAY ==
[2023-11-09 16:06] LABS: ALB/GLOB Ratio 0.9 RATIO (0.9-2.4); AST(SGOT) 118 U/L (15-37); Alanine Aminotransfer ALT/SGPT 147 U/L (16-61); Albumin, Serum 4.2 g/dL (3.2-5.0); Alkaline Phosphatase 122 U/L (45-117); Anion Gap 6 (5-15); BUN 18 mg/dL (7-18); Calcium,Total 10.1 mg/dL (8.5-10.1); Chloride 101 mmol/L (98-107); Creatinine, Serum 0.95 mg/dL (0.70-1.30); EST Glomerular Filtration Rate 92 mL/min (>60); Est Glom Filt Rate - Afr Amer 112 mL/min (>60); Globulin 4.5 g/dL (2.2-4.2); Glucose 92 mg/dL (74-106); Protein, Total 8.7 g/dL (6.4-8.2); Sodium Level 135 mmol/L (136-145)
== END | disposition home or self-care (01) ==
LOC: MTLAB 12:40
PROVIDERS: PCP Family Medicine; Referring Provider Family Medicine; Visit Provider Family Medicine
DX: R74.8 Abnormal levels of other serum enzymes (principal); R73.09 Other abnormal glucose
CPT/HCPCS: 36415; 80053; 83036

== ENCOUNTER 2024-11-13 16:29 | Inpatient (IN) | payer MEDICAID, SELFPAY ==
[2024-11-13] VITALS (29 sets, daily range): BP systolic 94–113; BP diastolic 41–70; PULSE 67–96; RESP 12–30; TEMP 35.8–37; O2SAT 94–100; BMI 32.3
[2024-11-13 17:19] LABS: Hematocrit 31.7 % (40-54); Hemoglobin 11.9 g/dL (13.0-16.5); Immature Granulocytes Count 0.560 X10^3/uL (0.0-0.0); Mean Corp Hgb Conc 37.5 g/dL (32-36); Mean Corpuscular Volume 95.5 fL (80-94); Mean Platelet Vol. 12.0 fl (6.2-12.0); NRBC Flagged by Analyzer 0.6 % (0-5); POSITIVE DIFFERENTIAL YES; RBC Distribution Width CV 15.1 % (11.6-14.6); RBC Distribution Width SD 51.4 fl (35.1-43.9); Red Blood Count 3.32 M/mm3 (4.6-6.2); White Blood Count 20.8 K/mm3 (4.4-11.0)
[2024-11-13 17:20] LABS: Differential Indicated SCAN CRITERIA MET
[2024-11-13 17:34] LABS: Alcohol, Blood (Medical)-Serum 53.3 mg/dL (<=10.0)
[2024-11-13 18:06] LABS: AST(SGOT) 72 U/L (<=37); Alanine Aminotransfer ALT/SGPT 71 U/L (<=46); Albumin, Serum 2.9 g/dL (3.5-5.0); Alkaline Phosphatase 166 U/L (40-129); Anion Gap UNABLE TO CALCULATE (5-15); BUN 46 mg/dL (4-19); BUN/Creat Ratio 13.8 RATIO (10-20); Calcium,Total 8.0 mg/dL (7.6-11.0); Carbon Dioxide 23.7 mmol/L (21.0-32.0); Chloride < 60 mmol/L (98-108); Estimated Creatinine Clearance 36.16 ml/min (50-250); Globulin 3.2 g/dL (2.2-4.2); Glucose 119 mg/dL (70-99); Potassium 3.2 mmol/L (3.3-5.1)
[2024-11-13 18:14] LABS: Prothrombin Time (Protime)PT. 15.1 SECONDS (11.7-14.9)
[2024-11-13 18:52] LABS: Differential Comment SCANNED
[2024-11-13 18:58] LABS: Pro- Brain NATRIURETIC PEPTIDE 9104 pg/mL (<=450); Troponin T High Sensitivity 18 ng/L (<=22)
[2024-11-13] MEDS: Piperacil/Tazobactam 4.5 GM in 0.9% Normal Saline (100mL MB+) 100 ML IV (19:55)
[2024-11-13 19:57] LABS: Color, Urine Amber (Yellow); Glucose, Dipstick Normal (Normal); Ketone-Dipstick 5 mg/dl (Negative); Leukocyte Esterase-Dipstick 25 /ul (Negative); Nitrite-Dipstick Negative (Negative); Occult Blood-Urine Negative /ul (Negative); Protein-Dipstick 100 mg/dl (Negative); Specific Gravity, Urine 1.020 (1.002-1.030); Urine Bilirubin Dipstick 3 mg/dL (Negative)
[2024-11-13 20:00] LABS: Magnesium 1.6 mg/dL (1.5-2.2)
[2024-11-13 20:05] LABS: Red Blood Cells-Urine 0-5 SEEN /hpf (0-5); Squamous Epithelial Cells - UA 0-5 SEEN /hpf (0-5)
[2024-11-13 20:06] LABS: Mucous, Urine RARE /hpf (<or=2+)
[2024-11-13 20:07] LABS: Barbiturate Urine NEGATIVE (< 200 ng/mL); Benzodiazepine Urine NEGATIVE (< 200 ng/mL); PCP Urine NEGATIVE (< 25 ng/mL); THC Urine NEGATIVE (< 50 ng/mL)
[2024-11-13 20:29] LABS: Troponin T High Sens 2 HR 20 ng/L (<=22)
[2024-11-13] MEDS: Vancomycin HCl 2,000 MG in 0.9% Normal Saline (500mL Bag) 500 ML 250 MG IV (20:33)
[2024-11-13 21:52] LABS: Reflex Lactate? Y
[2024-11-13] MEDS: 0.9% Normal Saline (1000mL) 1,000 ML 999 ML IV (22:25)
[2024-11-13 22:47] LABS: Troponin T High Sens 4 HR 21 ng/L (<=22)
[2024-11-13 22:55] LABS: Platelet Count 89 K/mm3 (150-450)
[2024-11-13] MEDS: Potassium Chloride Oral Tablet 20 MEQ 40 MEQ PO (23:11)
[2024-11-13 23:42] LABS: CPK Total, Creatine Kinase 41 U/L (24-195)
[2024-11-14] VITALS (27 sets, daily range): BP systolic 87–117; BP diastolic 43–95; PULSE 76–90; RESP 16–30; TEMP 35.4–36.4; O2SAT 95–100; BMI 32.3
[2024-11-14] MEDS: KCL 40mEq in 0.9% NS 40 MEQ/1,000 ML IV.SOLN 100 MEQ IV (00:09)
[2024-11-14] MEDS: Linezolid 600 MG 600 MG/300 ML BAG 200 MG IV (00:09)
[2024-11-14] MEDS: Albumin Human 25% (100 mL) 25 GM/100 ML BAG IV ×3 (00:17→14:30)
[2024-11-14 00:20] LABS: FOLATES,SERUM (FOLIC ACID) < 2.00 ng/mL (4.60-34.80)
[2024-11-14] MEDS: 0.9% Saline Lock 10 ML Syringe IV ×4 (00:33→22:48)
[2024-11-14 01:00] LABS: Osmolality, Serum 256 mOsm/KG (275-295)
[2024-11-14 01:21] LABS: Vitamin B12 781 pg/mL (180-914)
[2024-11-14 02:56] LABS: Anion Gap 16 (5-15); BUN 49 mg/dL (4-19); BUN/Creat Ratio 14.4 RATIO (10-20); Calcium,Total 7.7 mg/dL (7.6-11.0); Carbon Dioxide 31.5 mmol/L (21.0-32.0); Chloride 63 mmol/L (98-108); Estimated Creatinine Clearance 35.61 ml/min (50-250); Glucose 120 mg/dL (70-99); Potassium 3.6 mmol/L (3.3-5.1)
[2024-11-14 03:22] LABS: Reflex Lactate? Y
[2024-11-14 04:10] LABS: Pro- Brain NATRIURETIC PEPTIDE 10633 pg/mL (<=450)
[2024-11-14] MEDS: Folic Acid 1 MG in 0.9% Normal Saline (50mL Bag) 50 ML 200 MG IV (04:14)
[2024-11-14] MEDS: Piperacil/Tazobactam 3.375 GM in 0.9% Normal Saline (50mL MB+) 50 ML IV ×3 (05:38→22:48)
[2024-11-14 06:11] LABS: AST(SGOT) 62 U/L (<=37); Alanine Aminotransfer ALT/SGPT 65 U/L (<=46); Albumin, Serum 3.0 g/dL (3.5-5.0); Alkaline Phosphatase 146 U/L (40-129); Anion Gap 17 (5-15); BUN 47 mg/dL (4-19); BUN/Creat Ratio 13.8 RATIO (10-20); Calcium,Total 7.8 mg/dL (7.6-11.0); Carbon Dioxide 31.1 mmol/L (21.0-32.0); Chloride 65 mmol/L (98-108); Estimated Creatinine Clearance 35.30 ml/min (50-250); Globulin 2.9 g/dL (2.2-4.2); Glucose 120 mg/dL (70-99); Potassium 3.9 mmol/L (3.3-5.1)
[2024-11-14] MEDS: 0.9% Normal Saline (1000mL) 1,000 ML 999 ML IV ×2 (08:33→09:42)
[2024-11-14 08:56] LABS: Anion Gap 16 (5-15); BUN 48 mg/dL (4-19); BUN/Creat Ratio 13.9 RATIO (10-20); Calcium,Total 7.6 mg/dL (7.6-11.0); Carbon Dioxide 30.8 mmol/L (21.0-32.0); Chloride 66 mmol/L (98-108); Estimated Creatinine Clearance 35.41 ml/min (50-250); Glucose 121 mg/dL (70-99); Potassium 3.8 mmol/L (3.3-5.1)
[2024-11-14 09:25] LABS: Hematocrit 29.7 % (40-54); Hemoglobin 11.2 g/dL (13.0-16.5); Immature Granulocytes Count 0.200 X10^3/uL (0.0-0.0); Mean Corp Hgb Conc 37.7 g/dL (32-36); Mean Corpuscular Volume 93.4 fL (80-94); Mean Platelet Vol. 12.2 fl (6.2-12.0); NRBC Flagged by Analyzer 0.7 % (0-5); POSITIVE COUNT YES; Platelet Count 121 K/mm3 (150-450); RBC Distribution Width CV 14.8 % (11.6-14.6); RBC Distribution Width SD 49.9 fl (35.1-43.9); Red Blood Count 3.18 M/mm3 (4.6-6.2); White Blood Count 16.5 K/mm3 (4.4-11.0)
[2024-11-14 09:26] LABS: Differential Indicated SCAN CRITERIA MET
[2024-11-14 09:58] LABS: Allen Test Positive; Base Excess 11 mmol/L (-2 to +2); PO2 86 mmHG (75-100); SITE L Radial; SO2 97 % (95-99)
[2024-11-14] MEDS: 0.9% Normal Saline (1000mL) 1,000 ML 75 ML IV (10:57)
[2024-11-14 11:04] LABS: Creatinine, Urine (random) 206.00 mg/dL (39.00-259.00)
[2024-11-14 11:17] LABS: Osmolality, Urine 278 mOsm/KG
[2024-11-14 13:29] LABS: BUN 49 mg/dL (4-19); BUN/Creat Ratio 15.0 RATIO (10-20); Calcium,Total 7.1 mg/dL (7.6-11.0); Carbon Dioxide 30.4 mmol/L (21.0-32.0); Estimated Creatinine Clearance 36.92 ml/min (50-250); Glucose 125 mg/dL (70-99); Potassium 3.6 mmol/L (3.3-5.1)
[2024-11-14 13:35] LABS: Anion Gap 13 (5-15); Chloride 70 mmol/L (98-108)
[2024-11-14 14:12] LABS: Osmolality, Serum 256 mOsm/KG (275-295)
[2024-11-14 14:16] LABS: Acetaminophen (Tylenol) Level < 5.0 ug/mL (8.0-19.0)
[2024-11-14 16:48] LABS: Anion Gap 14 (5-15); BUN 51 mg/dL (4-19); BUN/Creat Ratio 15.5 RATIO (10-20); Calcium,Total 7.4 mg/dL (7.6-11.0); Carbon Dioxide 31.6 mmol/L (21.0-32.0); Chloride 69 mmol/L (98-108); Estimated Creatinine Clearance 37.26 ml/min (50-250); Glucose 117 mg/dL (70-99); Potassium 3.6 mmol/L (3.3-5.1)
[2024-11-14 20:44] LABS: HIV Nonreactive (Nonreactive)
[2024-11-14 21:02] LABS: Anion Gap 18 (5-15); BUN 51 mg/dL (4-19); BUN/Creat Ratio 16.2 RATIO (10-20); Calcium,Total 7.4 mg/dL (7.6-11.0); Carbon Dioxide 28.2 mmol/L (21.0-32.0); Chloride 69 mmol/L (98-108); Estimated Creatinine Clearance 38.32 ml/min (50-250); Glucose 108 mg/dL (70-99); Potassium 3.6 mmol/L (3.3-5.1)
[2024-11-14 21:45] LABS: CPK Total, Creatine Kinase 25 U/L (24-195)
[2024-11-15] VITALS (24 sets, daily range): BP systolic 75–133; BP diastolic 47–68; PULSE 83–90; RESP 14–27; TEMP 36.1–36.8; O2SAT 94–100; BMI 33.6
[2024-11-15] MEDS: 0.9% Normal Saline (1000mL) 1,000 ML 75 ML IV ×2 (00:59→13:37)
[2024-11-15] MEDS: Piperacil/Tazobactam 3.375 GM in 0.9% Normal Saline (50mL MB+) 50 ML IV ×3 (05:36→21:37)
[2024-11-15 05:49] LABS: Immature Granulocytes Count 0.100 X10^3/uL (0.0-0.0); Mean Platelet Vol. 11.3 fl (6.2-12.0); NRBC Flagged by Analyzer 0.6 % (0-5); POSITIVE COUNT YES; Platelet Count 89 K/mm3 (150-450); White Blood Count 15.4 K/mm3 (4.4-11.0)
[2024-11-15 06:24] LABS: Magnesium 1.7 mg/dL (1.5-2.2)
[2024-11-15 06:34] LABS: AST(SGOT) 54 U/L (<=37); Alanine Aminotransfer ALT/SGPT 52 U/L (<=46); Albumin, Serum 3.0 g/dL (3.5-5.0); Alkaline Phosphatase 127 U/L (40-129); Anion Gap 14 (5-15); BUN 52 mg/dL (4-19); BUN/Creat Ratio 18.0 RATIO (10-20); Calcium,Total 7.2 mg/dL (7.6-11.0); Carbon Dioxide 30.5 mmol/L (21.0-32.0); Chloride 71 mmol/L (98-108); Estimated Creatinine Clearance 42.70 ml/min (50-250); Globulin 2.5 g/dL (2.2-4.2); Glucose 96 mg/dL (70-99); Potassium 3.5 mmol/L (3.3-5.1)
[2024-11-15 07:17] LABS: Hematocrit 28.0 % (40-54); Hemoglobin 9.5 g/dL (13.0-16.5); Mean Corp Hgb Conc 33.9 g/dL (32-36); Mean Corpuscular Volume 98.2 fL (80-94); RBC Distribution Width CV 15.4 % (11.6-14.6); RBC Distribution Width SD 54.6 fl (35.1-43.9); Red Blood Count 2.85 M/mm3 (4.6-6.2)
[2024-11-15 07:30] LABS: Differential Comment SCANNED; Differential Indicated SCAN CRITERIA MET
[2024-11-15 08:26] LABS: Mucous, Urine 0 SEEN /hpf (<or=2+); Squamous Epithelial Cells - UA 0 SEEN /hpf (0-5)
[2024-11-15 08:36] LABS: Color, Urine Yellow (Yellow); Glucose, Dipstick Normal (Normal); Ketone-Dipstick Negative (Negative); Leukocyte Esterase-Dipstick 25 /ul (Negative); Nitrite-Dipstick Negative (Negative); Occult Blood-Urine 150 /ul (Negative); Protein-Dipstick 30 mg/dl (Negative); Specific Gravity, Urine 1.020 (1.002-1.030); Urine Bilirubin Dipstick Negative (Negative)
[2024-11-15 08:57] LABS: Red Blood Cells-Urine 0-5 SEEN /hpf (0-5)
[2024-11-15 09:04] LABS: Urea Nitrogen, Urine 451 mg/dL (NO RANGE EST.)
[2024-11-15 09:20] LABS: Creatinine, Urine (random) 158.00 mg/dL (39.00-259.00); Protein, Urine (Random) 31.7 mg/dL (0.0-12.0); Protein:Creat Ratio 201 mg/g CRE (0-200)
[2024-11-15] MEDS: Lorazepam 2 MG/ML WCH Syringe 1 MG IV (10:19)
[2024-11-15] MEDS: 0.9% Saline Lock 10 ML Syringe IV ×4 (10:19→23:39)
[2024-11-15] MEDS: Folic Acid 1 MG in 0.9% Normal Saline (50mL Bag) 50 ML 200 MG IV (10:22)
[2024-11-15 11:15] LABS: CRP 85.70 mg/L (0.0-3.0); Cholesterol 65 mg/dL (<=200); Low Density Lipoprotein Calc. 24 mg/dL; Triglycerides 85 mg/dL; Very Low Density Lipoprotein 17 mg/dL (5-40); cholesterol:hdl ratio screen 2.71
[2024-11-15 13:24] LABS: Anion Gap 15 (5-15); BUN 53 mg/dL (4-19); BUN/Creat Ratio 19.0 RATIO (10-20); Calcium,Total 7.4 mg/dL (7.6-11.0); Carbon Dioxide 28.6 mmol/L (21.0-32.0); Chloride 73 mmol/L (98-108); Estimated Creatinine Clearance 44.55 ml/min (50-250); Glucose 107 mg/dL (70-99); Potassium 3.2 mmol/L (3.3-5.1)
[2024-11-15] MEDS: Potassium Chloride Oral Tablet 20 MEQ 60 MEQ PO (17:16)
[2024-11-15] MEDS: Albumin Human 25% (100 mL) 25 GM/100 ML BAG IV ×3 (17:50→21:45)
[2024-11-16] VITALS (18 sets, daily range): BP systolic 103–133; BP diastolic 57–117; PULSE 80–90; RESP 12–40; TEMP 36.3–36.8; O2SAT 86–100; BMI 33.7
[2024-11-16] MEDS: 0.9% Saline Lock 10 ML Syringe IV ×4 (04:57→21:45)
[2024-11-16 05:21] LABS: Hematocrit 27.1 % (40-54); Hemoglobin 10.1 g/dL (13.0-16.5); Mean Corp Hgb Conc 37.3 g/dL (32-36); Mean Corpuscular Volume 94.8 fL (80-94); Mean Platelet Vol. 11.7 fl (6.2-12.0); POSITIVE COUNT YES; RBC Distribution Width CV 15.0 % (11.6-14.6); RBC Distribution Width SD 50.9 fl (35.1-43.9); Red Blood Count 2.86 M/mm3 (4.6-6.2); White Blood Count 13.3 K/mm3 (4.4-11.0)
[2024-11-16 05:27] LABS: Scan Indicated on CBC? Y/N YES- FLAGS NOTED
[2024-11-16 05:40] LABS: AST(SGOT) 37 U/L (<=37); Alanine Aminotransfer ALT/SGPT 38 U/L (<=46); Albumin, Serum 3.5 g/dL (3.5-5.0); Alkaline Phosphatase 112 U/L (40-129); Anion Gap 16 (5-15); BUN 54 mg/dL (4-19); BUN/Creat Ratio 24.7 RATIO (10-20); Calcium,Total 7.7 mg/dL (7.6-11.0); Carbon Dioxide 28.7 mmol/L (21.0-32.0); Chloride 75 mmol/L (98-108); Estimated Creatinine Clearance 56.09 ml/min (50-250); Globulin 2.4 g/dL (2.2-4.2); Glucose 92 mg/dL (70-99); Magnesium 1.7 mg/dL (1.5-2.2); Potassium 3.3 mmol/L (3.3-5.1)
[2024-11-16] MEDS: Piperacil/Tazobactam 3.375 GM in 0.9% Normal Saline (50mL MB+) 50 ML IV (05:44)
[2024-11-16 07:52] LABS: Platelet Count 87 K/mm3 (150-450)
[2024-11-16] MEDS: Potassium Chloride Oral Tablet 20 MEQ 60 MEQ PO (09:27)
[2024-11-16] MEDS: Folic Acid 1 MG in 0.9% Normal Saline (50mL Bag) 50 ML 200 MG IV (09:52)
[2024-11-17] VITALS (8 sets, daily range): BP systolic 101–117; BP diastolic 56–70; PULSE 78–87; RESP 16–18; TEMP 36.5–36.7; O2SAT 93–99; BMI 33.6
[2024-11-17] MEDS: 0.9% Saline Lock 10 ML Syringe IV (05:22)
[2024-11-17 05:24] LABS: Hematocrit 30.4 % (40-54); Hemoglobin 10.8 g/dL (13.0-16.5); Mean Corp Hgb Conc 35.5 g/dL (32-36); Mean Corpuscular Volume 99.7 fL (80-94); Mean Platelet Vol. 11.5 fl (6.2-12.0); POSITIVE COUNT YES; Platelet Count 69 K/mm3 (150-450); RBC Distribution Width CV 15.6 % (11.6-14.6); RBC Distribution Width SD 56.6 fl (35.1-43.9); Red Blood Count 3.05 M/mm3 (4.6-6.2); White Blood Count 12.1 K/mm3 (4.4-11.0)
[2024-11-17 05:42] LABS: Scan Indicated on CBC? Y/N NO
[2024-11-17 05:48] LABS: Anion Gap 12 (5-15); BUN 53 mg/dL (4-19); BUN/Creat Ratio 35.7 RATIO (10-20); Calcium,Total 7.8 mg/dL (7.6-11.0); Carbon Dioxide 29.2 mmol/L (21.0-32.0); Chloride 79 mmol/L (98-108); Estimated Creatinine Clearance 82.82 ml/min (50-250); Glucose 104 mg/dL (70-99); Potassium 4.1 mmol/L (3.3-5.1)
[2024-11-17] MEDS: Thiamine Hydrochloride 100 MG Tablet PO (08:09)
[2024-11-17 13:50] LABS: Anion Gap 15 (5-15); BUN 52 mg/dL (4-19); BUN/Creat Ratio 39.7 RATIO (10-20); Calcium,Total 7.9 mg/dL (7.6-11.0); Carbon Dioxide 26.1 mmol/L (21.0-32.0); Chloride 80 mmol/L (98-108); Estimated Creatinine Clearance 94.93 ml/min (50-250); Glucose 96 mg/dL (70-99); Potassium 4.2 mmol/L (3.3-5.1)
[2024-11-17] MEDS: Furosemide 500 MG in Empty Viaflex 50 mL 1 EACH CONT INF (14:05)
[2024-11-17 19:43] LABS: Anion Gap 14 (5-15); BUN 52 mg/dL (4-19); BUN/Creat Ratio 41.3 RATIO (10-20); Calcium,Total 8.4 mg/dL (7.6-11.0); Carbon Dioxide 28.2 mmol/L (21.0-32.0); Chloride 80 mmol/L (98-108); Estimated Creatinine Clearance 97.17 ml/min (50-250); Glucose 139 mg/dL (70-99); Potassium 3.8 mmol/L (3.3-5.1)
[2024-11-18] VITALS (8 sets, daily range): BP systolic 100–143; BP diastolic 65–84; PULSE 73–89; RESP 16–18; TEMP 36.6–37.1; O2SAT 93–98; BMI 32.8
[2024-11-18 01:35] LABS: Anion Gap 14 (5-15); BUN 52 mg/dL (4-19); BUN/Creat Ratio 44.3 RATIO (10-20); Calcium,Total 8.4 mg/dL (7.6-11.0); Carbon Dioxide 29.5 mmol/L (21.0-32.0); Chloride 81 mmol/L (98-108); Estimated Creatinine Clearance 105.47 ml/min (50-250); Glucose 112 mg/dL (70-99); Potassium 3.9 mmol/L (3.3-5.1)
[2024-11-18] MEDS: Thiamine Hydrochloride 100 MG Tablet PO (08:58)
[2024-11-18 09:38] LABS: Hematocrit 29.1 % (40-54); Hemoglobin 10.7 g/dL (13.0-16.5); Immature Granulocytes Count 0.300 X10^3/uL (0.0-0.0); Mean Corp Hgb Conc 36.8 g/dL (32-36); Mean Corpuscular Volume 97.3 fL (80-94); Mean Platelet Vol. 11.4 fl (6.2-12.0); NRBC Flagged by Analyzer 1.1 % (0-5); POSITIVE COUNT YES; Platelet Count 89 K/mm3 (150-450); RBC Distribution Width CV 15.4 % (11.6-14.6); RBC Distribution Width SD 54.1 fl (35.1-43.9); Red Blood Count 2.99 M/mm3 (4.6-6.2); White Blood Count 7.0 K/mm3 (4.4-11.0)
[2024-11-18 09:41] LABS: Differential Indicated SCAN CRITERIA MET
[2024-11-18 10:10] LABS: AST(SGOT) 45 U/L (<=37); Alanine Aminotransfer ALT/SGPT 34 U/L (<=46); Albumin, Serum 2.8 g/dL (3.5-5.0); Alkaline Phosphatase 109 U/L (40-129); Anion Gap 13 (5-15); BUN 47 mg/dL (4-19); BUN/Creat Ratio 47.7 RATIO (10-20); Calcium,Total 8.1 mg/dL (7.6-11.0); Carbon Dioxide 30.0 mmol/L (21.0-32.0); Chloride 85 mmol/L (98-108); Estimated Creatinine Clearance 124.38 ml/min (50-250); Globulin 2.7 g/dL (2.2-4.2); Glucose 100 mg/dL (70-99); Magnesium 1.3 mg/dL (1.5-2.2); Potassium 3.6 mmol/L (3.3-5.1)
[2024-11-18 10:21] LABS: Basophilic Stippling 1+
[2024-11-18 10:22] LABS: Polychromasia 1+
[2024-11-18] MEDS: Furosemide 500 MG in Empty Viaflex 50 mL 1 EACH CONT INF (11:10)
[2024-11-18 14:08] LABS: Anti-Chromatin <0.2 AI (0.0-0.9); Anti-Jo <0.2 AI (0.0-0.9); Anti-dsDNA Ab 1 IU/mL (0-9); SJOGREN'S Anti-SS-A test < 0.2 AI (0.0-0.9); SJOGREN'S Anti-SS-B test < 0.2 AI (0.0-0.9)
[2024-11-18] MEDS: 0.9% Saline Lock 10 ML Syringe IV (15:49)
[2024-11-18] MEDS: Potassium Phosphate 45 MM in 0.9% Normal Saline (500mL Bag) 500 ML 85 MM IV (15:49)
[2024-11-18 15:54] LABS: Anion Gap 13 (5-15); BUN 48 mg/dL (4-19); BUN/Creat Ratio 51.7 RATIO (10-20); Calcium,Total 8.6 mg/dL (7.6-11.0); Carbon Dioxide 32.3 mmol/L (21.0-32.0); Chloride 82 mmol/L (98-108); Estimated Creatinine Clearance 131.07 ml/min (50-250); Glucose 103 mg/dL (70-99); Potassium 3.6 mmol/L (3.3-5.1)
[2024-11-18] MEDS: Magnesium Sulfate 4gm/100mL 4 GM/100 ML IV.SOLN. IV (15:54)
[2024-11-18] MEDS: 0.9% Normal Saline (250mL Bag) 250 ML 15 ML IV (22:41)
[2024-11-19] VITALS (8 sets, daily range): BP systolic 99–119; BP diastolic 61–69; PULSE 69–79; RESP 16–18; TEMP 36.5–37.1; O2SAT 97–99; BMI 32.7
[2024-11-19] MEDS: Furosemide 500 MG in Empty Viaflex 50 mL 1 EACH CONT INF ×2 (00:50→15:29)
[2024-11-19] MEDS: 0.9% Saline Lock 10 ML Syringe IV (06:58)
[2024-11-19 07:08] LABS: Complement CH50 < 18 U/mL (>41); Cytoplasmic Ab (C-ANCA) <1:20 titer (Neg:<1:20); Perinuclear Ab (P-ANCA) <1:20 titer (Neg:<1:20)
[2024-11-19 07:57] LABS: Anion Gap 12 (5-15); BUN 37 mg/dL (4-19); BUN/Creat Ratio 46.5 RATIO (10-20); Calcium,Total 8.5 mg/dL (7.6-11.0); Carbon Dioxide 32.7 mmol/L (21.0-32.0); Chloride 84 mmol/L (98-108); Estimated Creatinine Clearance 150.29 ml/min (50-250); Glucose 94 mg/dL (70-99); Magnesium 1.5 mg/dL (1.5-2.2); Potassium 3.5 mmol/L (3.3-5.1)
[2024-11-19] MEDS: Thiamine Hydrochloride 100 MG Tablet PO (09:07)
[2024-11-20] VITALS (9 sets, daily range): BP systolic 99–131; BP diastolic 55–85; PULSE 70–75; RESP 12–19; TEMP 36.7–36.9; O2SAT 89–100; BMI 31.6
[2024-11-20] MEDS: Furosemide 500 MG in Empty Viaflex 50 mL 1 EACH CONT INF (03:51)
[2024-11-20 07:13] LABS: Hematocrit 28.5 % (40-54); Hemoglobin 10.0 g/dL (13.0-16.5); Mean Corp Hgb Conc 35.1 g/dL (32-36); Mean Corpuscular Volume 99.3 fL (80-94); Mean Platelet Vol. 10.8 fl (6.2-12.0); POSITIVE COUNT YES; Platelet Count 89 K/mm3 (150-450); RBC Distribution Width CV 15.5 % (11.6-14.6); RBC Distribution Width SD 55.8 fl (35.1-43.9); Red Blood Count 2.87 M/mm3 (4.6-6.2); White Blood Count 6.7 K/mm3 (4.4-11.0)
[2024-11-20] MEDS: Thiamine Hydrochloride 100 MG Tablet PO (07:38)
[2024-11-20 07:42] LABS: Anion Gap 13 (5-15); BUN 28 mg/dL (4-19); BUN/Creat Ratio 38.6 RATIO (10-20); Calcium,Total 9.0 mg/dL (7.6-11.0); Carbon Dioxide 36.4 mmol/L (21.0-32.0); Chloride 86 mmol/L (98-108); Estimated Creatinine Clearance 166.31 ml/min (50-250); Glucose 93 mg/dL (70-99); Magnesium 1.1 mg/dL (1.5-2.2); Potassium 3.2 mmol/L (3.3-5.1)
[2024-11-20] MEDS: 0.9% Saline Lock 10 ML Syringe IV ×3 (08:22→23:00)
[2024-11-20] MEDS: Potassium Chloride Oral Tablet 20 MEQ 40 MEQ PO (08:22)
[2024-11-20] MEDS: Magnesium Sulfate 4gm/100mL 4 GM/100 ML IV.SOLN. IV (08:23)
[2024-11-20 08:27] LABS: Scan Indicated on CBC? Y/N YES- FLAGS NOTED
[2024-11-20] MEDS: Ensure Plus High Protein 120 ML LIQUID PO (17:41)
[2024-11-21 04:03] VITALS: BMI 30.1
[2024-11-21 05:49] VITALS: BP 125/79; PULSE 69; RESP 18; TEMP 36.8; O2SAT 93
[2024-11-21 07:52] VITALS: BP 123/74; PULSE 69; RESP 16; TEMP 36.7; O2SAT 94
[2024-11-21] MEDS: Thiamine Hydrochloride 100 MG Tablet PO (07:54)
[2024-11-21 09:14] LABS: Hematocrit 28.7 % (40-54); Hemoglobin 9.9 g/dL (13.0-16.5); Mean Corp Hgb Conc 34.5 g/dL (32-36); Mean Corpuscular Volume 100.3 fL (80-94); Mean Platelet Vol. 10.6 fl (6.2-12.0); POSITIVE COUNT YES; POSITIVE MORPHOLOGY YES; Platelet Count 91 K/mm3 (150-450); RBC Distribution Width CV 15.7 % (11.6-14.6); RBC Distribution Width SD 57.8 fl (35.1-43.9); Red Blood Count 2.86 M/mm3 (4.6-6.2); White Blood Count 7.9 K/mm3 (4.4-11.0)
[2024-11-21 09:16] LABS: Differential Indicated MANUAL DIFF
[2024-11-21 09:42] LABS: Anion Gap 11 (5-15); BUN 24 mg/dL (4-19); BUN/Creat Ratio 31.7 RATIO (10-20); Calcium,Total 9.4 mg/dL (7.6-11.0); Carbon Dioxide 37.8 mmol/L (21.0-32.0); Chloride 89 mmol/L (98-108); Estimated Creatinine Clearance 154.08 ml/min (50-250); Glucose 87 mg/dL (70-99); Potassium 3.5 mmol/L (3.3-5.1)
[2024-11-21 10:14] LABS: Neutrophil-Band 4 % (0-5); Neutrophil-Segmented 61 % (47-70); Red Cell Morphology NORM C+C NORMAL (NORM C&C); Total Cells Counted 100 (MANUAL DIFF)
[2024-11-21 12:06] VITALS: BP 128/63; PULSE 73; RESP 16; TEMP 36.3; O2SAT 94
[2024-11-21 16:14] VITALS: BP 148/89; PULSE 68; RESP 17; TEMP 36.6; O2SAT 94
[2024-11-21 16:46] LABS: Magnesium 1.2 mg/dL (1.5-2.2)
[2024-11-21] MEDS: 0.9% Saline Lock 10 ML Syringe IV (18:29)
[2024-11-21] MEDS: 0.9% Normal Saline (250mL Bag) 250 ML IV (18:29)
[2024-11-21] MEDS: Magnesium Sulfate 4gm/100mL 4 GM/100 ML IV.SOLN. IV (18:29)
[2024-11-21 20:56] VITALS: BP 126/82; PULSE 66; RESP 16; TEMP 36.6; O2SAT 96
[2024-11-22 02:21] VITALS: BP 126/75; PULSE 68; RESP 16; TEMP 36.6; O2SAT 95
[2024-11-22] MEDS: 0.9% Saline Lock 10 ML Syringe IV (05:52)
[2024-11-22 06:00] VITALS: BMI 29.6
[2024-11-22 07:49] LABS: Hematocrit 27.6 % (40-54); Hemoglobin 9.7 g/dL (13.0-16.5); Mean Corp Hgb Conc 35.1 g/dL (32-36); Mean Corpuscular Volume 99.3 fL (80-94); Mean Platelet Vol. 11.2 fl (6.2-12.0); POSITIVE COUNT YES; POSITIVE MORPHOLOGY YES; Platelet Count 80 K/mm3 (150-450); RBC Distribution Width CV 15.6 % (11.6-14.6); RBC Distribution Width SD 56.0 fl (35.1-43.9); Red Blood Count 2.78 M/mm3 (4.6-6.2); White Blood Count 8.0 K/mm3 (4.4-11.0)
[2024-11-22 07:56] LABS: Differential Indicated MANUAL DIFF
[2024-11-22 08:12] LABS: Magnesium 1.7 mg/dL (1.5-2.2)
[2024-11-22 08:13] LABS: Anion Gap 12 (5-15); BUN 17 mg/dL (4-19); BUN/Creat Ratio 26.9 RATIO (10-20); Calcium,Total 9.3 mg/dL (7.6-11.0); Carbon Dioxide 33.3 mmol/L (21.0-32.0); Chloride 90 mmol/L (98-108); Estimated Creatinine Clearance 181.62 ml/min (50-250); Glucose 88 mg/dL (70-99); Potassium 3.3 mmol/L (3.3-5.1)
[2024-11-22 08:49] LABS: Neutrophil-Band 4 % (0-5); Neutrophil-Segmented 80 % (47-70); Total Cells Counted 100 (MANUAL DIFF)
[2024-11-22 08:51] LABS: Polychromasia 1+
[2024-11-22 08:52] LABS: Target Cells 1+
[2024-11-22] MEDS: Thiamine Hydrochloride 100 MG Tablet PO (09:17)
[2024-11-22 10:00] VITALS: BP 112/68; PULSE 67; RESP 18; TEMP 36.9; O2SAT 98
[2024-11-22 15:35] VITALS: BP 125/82; PULSE 66; RESP 18; TEMP 36.9; O2SAT 97
== END 2024-11-22 15:56 | disposition home or self-care (01) | DRG 861 ==
LOC: ED 17:26 → ICU 11-14 00:09 → MS3 11-20 07:13 → ICU 11-27 10:51
PROVIDERS: Internal Medicine; Nurse Practitioner Adult Health; Admitting Provider Internal Medicine; Emergency Provider Emergency Medicine; PCP Family Medicine; Visit Provider Student in an Organized Health Care Education/Training Program
DX: R60.1 Generalized edema (principal); G92.8 Other toxic encephalopathy; D69.6 Thrombocytopenia, unspecified; E87.20 Acidosis, unspecified; E83.39 Other disorders of phosphorus metabolism; E87.1 Hypo-osmolality and hyponatremia; F10.239 Alcohol dependence with withdrawal, unspecified; F32.A Depression, unspecified; D64.9 Anemia, unspecified; K76.0 Fatty (change of) liver, not elsewhere classified; E66.9 Obesity, unspecified; N17.9 Acute kidney failure, unspecified; E86.1 Hypovolemia; F17.210 Nicotine dependence, cigarettes, uncomplicated; E87.6 Hypokalemia; K21.9 Gastro-esophageal reflux disease without esophagitis; E53.8 Deficiency of other specified B group vitamins; F41.9 Anxiety disorder, unspecified; E87.8 Other disorders of electrolyte and fluid balance, not elsewhere classified; G62.9 Polyneuropathy, unspecified; E83.42 Hypomagnesemia; D72.829 Elevated white blood cell count, unspecified; R16.0 Hepatomegaly, not elsewhere classified; F10.229 Alcohol dependence with intoxication, unspecified; R06.6 Hiccough; T40.495A Adverse effect of other synthetic narcotics, initial encounter; T42.3X5A Adverse effect of barbiturates, initial encounter; Z68.32 Body mass index [BMI] 32.0-32.9, adult; Z87.898 Personal history of other specified conditions; Z79.899 Other long term (current) drug therapy
CPT/HCPCS: 36415; 36600; 71045; 74176; 76705; 76770; 80048; 80053; 80061; 80143; 80307; 81001; 82077; 82550; 82570; 82607; 82746; 82803; 83036; 83605; 83735; 83880; 83930; 83935; 84100; 84156; 84295; 84300; 84443; 84484; 84540; 85025; 85027; 85049; 85610; 85652; 86037; 86140; 86160; 86162; 86225; 86235; 86703; 86704; 86705; 86706; 86707; 86803; 87040; 87070; 87205; 87340; 87350; 87449; 93005; 93306; 93970; 94668; 97129; 97130; 97162; 97166; 97530; 97535; 97802; 97803; 99285; 99406; J2020; P9047; Q9957; A4216; J1938; J2405

== ENCOUNTER → 2024-12-09 | Outpatient (CLI) | payer MEDICAID, SELFPAY ==
[2024-12-09 18:25] LABS: Anion Gap 17 (5-15); BUN 11 mg/dL (4-19); BUN/Creat Ratio 13.1 RATIO (10-20); Calcium,Total 9.5 mg/dL (7.6-11.0); Carbon Dioxide 19.6 mmol/L (21.0-32.0); Chloride 100 mmol/L (98-108); Glucose 119 mg/dL (70-99); Potassium 4.4 mmol/L (3.3-5.1)
== END | disposition home or self-care (01) ==
LOC: MTLAB 15:54
PROVIDERS: PCP Family Medicine; Referring Provider Internal Medicine Nephrology; Visit Provider Internal Medicine Nephrology
DX: N17.9 Acute kidney failure, unspecified (principal)
CPT/HCPCS: 36415; 80048